=== PATIENT | female | born 1955 | race Caucasian/White ===

== ENCOUNTER 2020-02-16 10:42 | Outpatient (CLI) | payer BC, SELFPAY ==
--- NOTE | ~2020-02-16 | MM_ITS ---
EXAMINATION: MM screening [facility] BI w princess HISTORY: Screening mammogram TECHNIQUE: Craniocaudal and mediolateral oblique 3-D tomosynthesis images were obtained and synthetic 2-D images were generated. CAD analysis was submitted and interpreted. COMPARISON: Comparison to multiple prior studies sequentially, with oldest reviewed study dated 07/2018. BREAST PARENCHYMAL COMPOSITION: The breasts are heterogeneously dense, which may obscure small masses . FINDINGS: There is no evidence of suspicious mass, calcification, or architectural distortion to sugg est malignancy in either breast. There has been no suspicious interval change. IMPRESSION: 1. No mammographic evidence of malignancy. 2. Recommend routine screening mammography in one year. BI-RADS Category 1: Negative Reviewed, dictated and finalized at location A.
== END 2020-02-16 10:43 | disposition home or self-care (01) ==
LOC: ANHIMG 10:47
PROVIDERS: Visit Provider Internal Medicine Hematology & Oncology
DX: Z12.31 Encounter for screening mammogram for malignant neoplasm of breast (principal)
CPT/HCPCS: 77063; 77067

== ENCOUNTER 2020-06-06 11:29 | Outpatient (CLI) | payer BC, SELFPAY ==
[2020-06-06 11:51] LABS: Basophils Absolute Auto 0.1 K/mm3 (0.0-0.1); Basophils Percent Auto 1.3 % (0.2-1.2); Eosinophils Absolute Auto 0.2 K/mm3 (0-0.3); Eosinophils Percent Auto 2.7 % (0-4.4); Hematocrit 38.5 % (37.0-47.0); Hemoglobin 12.7 g/dL (12.0-15.0); Immature Granulocyte Absolute 0.02 K/mm3 (0.00-0.031); Immature Granulocyte Percent A 0.3 % (0-0.5); Lymphocytes Absolute Auto 2.13 K/mm3 (0.9-3.2); Lymphocytes Percent Auto 30.3 % (18.3-44.2); Mean Corpuscular Hemoglobin 32.2 pg (26-34); Mean Corpuscular Volume 97.7 fl (80-100); Monocytes Absolute Auto 0.9 K/mm3 (0.1-0.6); Neutrophils Absolute Auto 3.7 K/mm3 (1.3-6.7); Neutrophils Percent Auto 52.4 % (45.5-73.1); Platelet Count Result 247 k/mm3 (150-375); Red Blood Count 3.94 M/mm3 (4.2-5.4); Red Cell Distribution Width 12.7 % (11.5-14.5)
[2020-06-06 14:56] LABS: Alanine Aminotransferase 22 U/L (4-35); Albumin Level 4.3 g/dL (3.5-5.1); Alkaline Phosphatase 68 U/L (38-126); Aspartate Amino Transferase 24 U/L (14-36); Bilirubin,Total 0.2 mg/dL (0.2-1.3); Blood Urea Nitrogen 13 mg/dL (7-17); Calcium 9.3 mg/dL (8.4-10.2); Carbon Dioxide 28 mmol/L (22-30); Chloride 100 mmol/L (98-107); Estimated Glomerular Filt Rate > 60; Glucose 87 mg/dL (65-105); Potassium 4.2 mmol/L (3.4-5.0); Sodium 135 mmol/L (137-145)
[2020-06-08 21:19] LABS: CA 27.29 13 U/mL (<38)
== END 2020-06-06 11:30 | disposition home or self-care (01) ==
PROVIDERS: Visit Provider Internal Medicine Hematology & Oncology
DX: C50.212 Malignant neoplasm of upper-inner quadrant of left female breast (principal); Z17.0 Estrogen receptor positive status [ER+]
CPT/HCPCS: 36415; 80053; 85025; 86300

== ENCOUNTER 2020-10-31 12:23 | Outpatient (CLI) | payer BC, SELFPAY ==
[2020-10-31 12:59] LABS: Basophils Absolute Auto 0.1 K/mm3 (0.0-0.1); Basophils Percent Auto 0.9 % (0.2-1.2); Eosinophils Absolute Auto 0.3 K/mm3 (0-0.3); Eosinophils Percent Auto 4.3 % (0-4.4); Hematocrit 39.8 % (37.0-47.0); Hemoglobin 13.3 g/dL (12.0-15.0); Immature Granulocyte Absolute 0.01 K/mm3 (0.00-0.031); Immature Granulocyte Percent A 0.1 % (0-0.5); Lymphocytes Absolute Auto 2.13 K/mm3 (0.9-3.2); Lymphocytes Percent Auto 28.8 % (18.3-44.2); Mean Corpuscular HGB Conc 33.4 g/dl (32-36); Mean Corpuscular Hemoglobin 32.4 pg (26-34); Mean Corpuscular Volume 96.8 fl (80-100); Mean Platelet Volume 9.2 fl (7.4-10.4); Monocytes Percent Auto 14.1 % (2.6-8.5); Neutrophils Absolute Auto 3.8 K/mm3 (1.3-6.7); Neutrophils Percent Auto 51.8 % (45.5-73.1); Platelet Count Result 267 k/mm3 (150-375); Red Blood Count 4.11 M/mm3 (4.2-5.4); Red Cell Distribution Width 12.9 % (11.5-14.5); White Blood Count 7.4 K/mm3 (4.5-10.0)
[2020-10-31 17:34] LABS: Alanine Aminotransferase 24 U/L (4-35); Alkaline Phosphatase 68 U/L (38-126); Anion Gap 6 mmol/L (8-16); Aspartate Amino Transferase 28 U/L (14-36); Bilirubin,Total 0.1 mg/dL (0.2-1.3); Blood Urea Nitrogen 18 mg/dL (7-17); Calcium 9.3 mg/dL (8.4-10.2); Carbon Dioxide 31 mmol/L (22-30); Chloride 103 mmol/L (98-107); Estimated Glomerular Filt Rate > 60; Glucose 83 mg/dL (65-105); Potassium 4.3 mmol/L (3.4-5.0); Sodium 140 mmol/L (137-145)
[2020-11-02 12:31] LABS: CA 27.29 13 U/mL (<38)
== END 2020-10-31 12:24 | disposition home or self-care (01) ==
PROVIDERS: Visit Provider Internal Medicine Hematology & Oncology
DX: C50.212 Malignant neoplasm of upper-inner quadrant of left female breast (principal); Z17.0 Estrogen receptor positive status [ER+]
CPT/HCPCS: 36415; 80053; 85025; 86300

== ENCOUNTER → 2021-01-31 00:44 | Outpatient (CLI) | payer BC, SELFPAY ==
[2021-01-31 19:08] LABS: SARS-CoV-2 RNA PCR Negative
== END ==
PROVIDERS: Visit Provider Obstetrics & Gynecology
DX: Z01.812 Encounter for preprocedural laboratory examination (principal); Z20.822 Contact with and (suspected) exposure to COVID-19
CPT/HCPCS: C9803; U0003; U0005

== ENCOUNTER 2021-01-31 12:57 | Outpatient (CLI) | payer BC, SELFPAY ==
--- NOTE | 2021-01-31 13:00 | ECG_ITS ---
Measurements Intervals [place] Rate: 75 P: 62 ME: 179 QRS: -15 QRSD: 106 T: 20 QT: 408 QTc: 456 Interpretive Statements SINUS RHYTHM POSSIBLE LEFT ATRIAL ENLARGEMENT INCOMPLETE RIGHT BUNDLE BRANCH BLOCK DELAYED PRECORDIAL R/S TRANSITION BORDERLINE ST-T WAVE ABNORMALITY- INFERIOR LEADS BASELINE ARTIFACT- I, II, III, AVR, AVL, AVF, V1-V6 BORDERLINE ECG Electronically Signed On 01-31-2021 13:28:14 [employer] by Aron Rey D.O.
== END 2021-01-31 12:58 | disposition home or self-care (01) ==
LOC: ANHSURGERY 13:02
PROVIDERS: PCP Family Medicine; Visit Provider Obstetrics & Gynecology
DX: I10 Essential (primary) hypertension (principal); Z01.812 Encounter for preprocedural laboratory examination; R94.31 Abnormal electrocardiogram [ECG] [EKG]; I45.10 Unspecified right bundle-branch block
CPT/HCPCS: 93005

== ENCOUNTER 2021-02-03 00:13 | Day surgery (SDC) | payer BC, SELFPAY ==
[2021-01-30 14:12] VITALS: BMI 24.7
--- NOTE | 2021-02-02 13:50 | WPDANESEPPF ---
Anes - Initial Pre Proc Eval Procedure: Operation Date: 02/03/21 13:00 Proposed Procedures p Anterior and Posterior Repair - Honorio Chowdhury MD s Trans Obturator Taping - Honorio Chowdhury MD Date/Time: 02/02/21 13:50 Surgeon: Honorio Chowdhury MD Pre Op Diagnosis: Uterine Prolapse, Incontinence Patient Data Age: 65 Gender: F Height: 1.68 m Weight: 69.54 kg Allergies Allergy/AdvReac Type Severity Reaction Status Date / Time Penicillins Allergy Intermediate Numbness Verified 02/03/21 11:26 Home Medications Medication Instructions Recorded Confirmed Type amlodipine 5 mg PO DAILY 01/30/21 02/03/21 History aspirin [Aspir-81] 81 mg PO DAILY 01/30/21 02/03/21 History azelastine 1 spray INTRANASAL PRN 01/30/21 02/03/21 History cholecalciferol (vitamin D3) 25 mcg PO DAILY 01/30/21 02/03/21 History [Vitamin D3] multivitamin [Multi-Daily] 1 tablet PO DAILY 01/30/21 02/03/21 History venlafaxine 37.5 mg PO DAILY 01/30/21 02/03/21 History Patient hx anesthesia problems: none Family hx anesthesia problems: none PMFSH Past Medical History Medical History Breast cancer FHx: mastectomy Hypertension Osteoarthritis Surgical History Surgical History H/O: hysterectomy History of bunionectomy Family History Family History Grandparent Diabetes mellitus Sibling Diabetes mellitus Family history of malignant neoplasm Family history of throat cancer Mother Diabetes mellitus Hypertension Family history of malignant melanoma Family history of coronary artery disease Other Family history of Alzheimer's disease Family history of cardiovascular disease Social History Social History Smoking status: Light tobacco smoker Tobacco type: cigarettes Additional smoking assessment comments: 1/2 ppd x 20 years Alcohol intake: current Alcohol use details: wine every 4 months Living arrangements: with family Spiritual care concerns: No Anes - Eval Final PreProcedure Day of Procedure 02/02/21 13:50 Patient weight: normal Heart: regular rate and rhythm Lungs: clear to auscultation and normal air movement Airway: Mallampati scale class II Neurological: alert and oriented Last oral intake: >/= 8 hours ASA classification: III Emergent: no Anesthetic plan: proceed Anesthesia type and monitoring: general LMA Informed Consent: The patient's anesthetic plan and its attendant risks and benefits were discussed with the patient/family/POA. Questions were solicited and answers provided to the satisfaction of the patient/family/POA.
[2021-02-03] VITALS (7 sets, daily range): BP systolic 108–140; BP diastolic 68–94; PULSE 67–79; RESP 12–20; TEMP 36.4–37.1; O2SAT 93–100
[2021-02-03] MEDS: ACETAMINOPHEN 500 MG TABLET 1000 MG PO (11:46)
[2021-02-03] MEDS: LACTATED RINGERS 1,000 ML 30 ML IV CONT ×2 (11:54→15:10)
--- NOTE | 2021-02-03 11:54 | PM.IMHP ---
H&P: HPI History of Present Illness Date/Time: 02/03/21 11:54 Chief Complaint: vaginal pressure and increase bladder infections. Narrative: Dai Montano is a 65 year old female s/p WOLF several years ago presented to the office with complaints of urine leakage and vaginal pressure worsening over the last few years. Patient also reports increasing bladder infections. Patient states she has tried pelvic exercises and kegels and declines the use of pessary devices. Patient denies a strong history of constipation. Review of Systems Musculoskeletal: Musculoskeletal: Reports arthralgias PMFSH Past Medical History Medical History Breast cancer FHx: mastectomy Hypertension Osteoarthritis Surgical History Surgical History H/O: hysterectomy History of bunionectomy Family History Family History Grandparent Diabetes mellitus Sibling Diabetes mellitus Family history of malignant neoplasm Family history of throat cancer Mother Diabetes mellitus Hypertension Family history of malignant melanoma Family history of coronary artery disease Other Family history of Alzheimer's disease Family history of cardiovascular disease Social History Social History Smoking status: Light tobacco smoker Tobacco type: cigarettes Additional smoking assessment comments: 1/2 ppd x 20 years Alcohol intake: current Alcohol use details: wine every 4 months Living arrangements: with family Spiritual care concerns: No Meds Home Medications and Allergies Home Medications Medication Instructions Recorded Confirmed Type amlodipine 5 mg PO DAILY 01/30/21 02/03/21 History aspirin [Aspir-81] 81 mg PO DAILY 01/30/21 02/03/21 History azelastine 1 spray INTRANASAL PRN 01/30/21 02/03/21 History cholecalciferol (vitamin D3) 25 mcg PO DAILY 01/30/21 02/03/21 History [Vitamin D3] multivitamin [Multi-Daily] 1 tablet PO DAILY 01/30/21 02/03/21 History venlafaxine 37.5 mg PO DAILY 01/30/21 02/03/21 History Allergies Allergy/AdvReac Type Severity Reaction Status Date / Time Penicillins Allergy Intermediate Numbness Verified 02/03/21 11:26 Exam Const: General: healthy appearing Resp: Effort & Inspection: normal respiratory effort Auscultation: clear to auscultation bilaterally GI: Inspection: normal to inspection : Bimanual Exam- Adnexa, other: rectocele and cystocele Assessment and Plan Assessment and plan (1) Reduced bladder sensation due to prolapse of pelvic organ: Code(s): R39.89 - Other symptoms and signs involving the genitourinary system Status: Acute Assessment and Plan: Patient scheduled for a Anterior and Posterior Repair with TOT c cystoscopy. Risk of bleeding, infection, trauma, mesh erosion, bladder retention,and pelvic pain. Patient agrees to proceed with surgery. (2) Pelvic organ prolapse quantification stage 2 cystocele: Code(s): N81.10 - Cystocele, unspecified Status: Acute (3) Pelvic organ prolapse quantification stage 3 rectocele: Code(s): N81.6 - Rectocele Status: Acute
[2021-02-03] MEDS: KETOROLAC 15 MG/ML VIAL (*BKC) IV PUSH (11:56)
--- NOTE | 2021-02-03 13:01 | WPDHPUPDATE1 ---
History and Physical Update Update Date/Time: 02/03/21 13:01 History and Physical has been reviewed, including an updated exam of the patient. There are NO changes in the patient's condition. Risks, benefits, and alternatives have been discussed and questions answered. Patient agrees to proceed with procedure.
[2021-02-03] MEDS: CLINDAMYCIN 900 MG/D5W 50 ML 900 MG/50 ML PIGGYBACK 50 MG IVPB (13:30)
[2021-02-03] MEDS: LIDO 1%/EPINEPHRINE 1:100,000 50 ML VIAL INFILTRATE (13:38)
--- NOTE | 2021-02-03 15:13 | PM.PROC ---
Procedure Note - Detailed Date of procedure: 02/04/21 Pre-op diagnosis: cystocele,rectocele, Incontinence Post-op diagnosis: same Procedure performed: Anterior and posterior repair with Transobturator taping and cystoscopy Description of procedure: Patient was taken to the operating room and placed in a dorsal lithotomy position. The patient was prepared and draped in a normal sterile fashion. Volar plaster Joseph catheter was placed into the bladder and the bladder was drained for 100cc. A solution of 1% lidocaine with epinephrine was in the trade on the anterior vaginal mucosa midline a small incision was made and the vaginal mucosa at the vaginal vault. Then the Metzenbaum scissors were then used to the rectum because of the thick cystocele and cut the vaginal mucosa in the midline the cut edges were held and splayed laterally with a series of Allis clamps. The bladder was dissected away along the lateral edges with the combination of short and blunt dissection exposing the vesicle vaginal space a series of 2 Ethibond suture interrupted were then placed sequentially along the lateral poles of the vesicle vaginal space and brought together to tuck the bladder back while simultaneously bringing the lateral vaginal tissue is to get a the excess vaginal mucosa was then trimmed and the vaginal Gyne was then closed with a running lock of 2 0 Vicryl suture. Attention was then turned to the posterior wall of the vagina and a lidocaine epinephrine solution was infiltrated in the posterior vaginal mucosa midline and to the perineal body of the old scars was cut out. the perineum and the posterior vaginal wall was opened vertically in midline up to the apex of the rectocele the cut edges were held and splayed laterally with Allis clamps original vaginal mucosa was then dissected laterally with caution combination of sharp and blunt dissection exposing the perirectal fascia and the perirectal fascia was then reapproximated with insert did all oxide 3 0 0 Ethibond sutures and lateral phos together intact the rectocele back deep interrupted sutures were used to reapproximate the fibers of the levator anion muscles in the excess vaginal mucosa was trimmed the posterior vaginal wall was closed with 0 Vicryl 2 0 Vicryl suture to the hymenal tags and the superficial perineal muscles were then closed with a running lock suture of 2 Vicryl in the perineal skin was closed with running subcuticular 2 0 Vicryl suture attention was then turned to the bladder sling and which 2 Allis clamps were placed along the anterior vaginal wall beginning 1cm below the urethra and 3cm apart vertically a 2cm incision was made between Allis clamps on anterior vaginal mucosa in the periurethral tissue was dissected with the Metzenbaum scissors and blunt dissection to the level of the pubic bone on either side the midline. The obturator foramen on the right portions of the vagina well palpated bilaterally and injected with 1% lidocaine with epinephrine. And marked with a sterile marker. Stab incision was made in both areas. The obturator device hook was then introduced through the outer obturator foramen through the membrane entering alongside the bladder and urethra pushing the bladder and urethra out of the way and exiting through the vagina. The same procedure occurred on the left side. Cystoscope was performed with the 70 degree scope and the bladder dome was noted the posterior portion of the bladder with no visual suture noted. the obturator devices were manipulated and no areas of punctation were noted in the bladder beatty bilaterally. And there were bilateral ureteral jets noted with an intact urethra. The cystoscope was removed. The vaginal taping was attached to the obturator removed and pulled through under proper tension with spacing with Becker scissors. The mail the vaginal mucosa was then closed with 2 0 Vicryl suture in a running locked fashion. The stab wound incisions were covered with surgical
[2021-02-03] MEDS: fentaNYL CITRATE INJ (*CRX) 100 MCG/2 ML VIAL 25 MCG IV PUSH ×2 (15:28→15:45)
--- NOTE | 2021-02-03 16:20 | PC.NURSE ---
This patient, Dai Montano, was received from PACU per kym on 02/03/21 at 1620. Patient/family oriented to unit policies and routines
[2021-02-03] MEDS: IBUPROFEN 600 MG TABLET PO (17:40)
[2021-02-03] MEDS: HYDROcodone/acetaminophen (*CRX) 5-325 MG TABLET 1 TAB PO (17:41)
[2021-02-03] MEDS: HYDROcodone/acetaminophen (*CRX) 10-325 MG TABLET 1 TAB PO (21:30)
[2021-02-04] MEDS: IBUPROFEN 600 MG TABLET PO (03:43)
[2021-02-04] MEDS: HYDROcodone/acetaminophen (*CRX) 10-325 MG TABLET 1 TAB PO ×2 (03:43→08:03)
[2021-02-04 03:44] VITALS: BP 130/80; PULSE 69; RESP 16; TEMP 36.4; O2SAT 98
[2021-02-04] MEDS: amLODIPine BESYLATE 5 MG TABLET PO (08:03)
[2021-02-04] MEDS: DOCUSATE SODIUM 100 MG CAPSULE 200 MG PO (08:07)
[2021-02-04 08:55] VITALS: BP 134/82; PULSE 72; RESP 18; TEMP 37.3; O2SAT 98
--- NOTE | 2021-02-04 09:02 | WPDANESPN ---
Anes - Prog Note Post-Op Date/Time: 02/04/21 09:02 Cardiovascular status: normal Respiratory status: normal Airway patency: baseline Mental status: baseline Post-Op hydration status: normal Vital Signs: Last Vital Signs Temp 36.4 C L 02/04/21 03:44 Pulse 69 02/04/21 03:44 Resp 16 02/04/21 03:44 BP 130/80 02/04/21 03:44 Pulse Ox 98 02/04/21 03:44 Pain Score (VAS): 12/11 I/O: Intake & Output 02/03/21 02/04/21 02/04/21 23:59 07:59 15:59 Intake Total 100 Output Total 300 Balance -200 Post-procedural complaints: none Patient Feedback: Patient satisfied with anesthetic care.
--- NOTE | 2021-02-04 09:07 | PM.OBPNVD ---
OB - PN: Subj Subjective Date/time seen: 02/04/21 09:07 Patient reports some right sided groin pain with walking otherwise okay. OB - PN A/P Assessment and Plan (1) Pelvic organ prolapse quantification stage 3 rectocele: Code(s): N81.6 - Rectocele Status: Acute Assessment and Plan: continue with postop care will d/c home when pain relieved with prn meds ambulate and tolerating diet. (2) Pelvic organ prolapse quantification stage 2 cystocele: Code(s): N81.10 - Cystocele, unspecified Status: Acute (3) Reduced bladder sensation due to prolapse of pelvic organ: Code(s): R39.89 - Other symptoms and signs involving the genitourinary system Status: Acute Time Spent With Patient Time: Total time spent is greater than 50% in coordination of care (as documented) at patient's floor/unit and/or counseling patient: Exam Narrative: Exam Narrative: urinary catheter and packing removed. No visible or palplabe hematoma noted. minimal bleeding on packing
[2021-02-04] MEDS: KETOROLAC 30 MG/ML VIAL (*BKC) IV PUSH (11:07)
[2021-02-04] MEDS: CYCLOBENZAPRINE HCL 10 MG TABLET PO (12:09)
== END 2021-02-04 12:37 | disposition home or self-care (01) ==
LOC: ANHSURGERY 15:20 → ANHOB2 16:07
PROVIDERS: PCP Family Medicine; Visit Provider Obstetrics & Gynecology
PROC: (CPT 57260; principal; 2021-02-03 13:00)
PROC: (CPT 57260; 2021-02-03 13:00)
DX: N81.10 Cystocele, unspecified (principal); N81.6 Rectocele; R39.89 Other symptoms and signs involving the genitourinary system; R32 Unspecified urinary incontinence; I10 Essential (primary) hypertension; M19.90 Unspecified osteoarthritis, unspecified site; Z85.3 Personal history of malignant neoplasm of breast; F17.210 Nicotine dependence, cigarettes, uncomplicated; Z79.82 Long term (current) use of aspirin
CPT/HCPCS: 57260; 57288; 99199; A9270; C1771; J1100; J1580; J1885; J2250; J2370; J2405; J2704; J3010; J7030; J7120

== ENCOUNTER 2021-04-28 14:58 | Outpatient (CLI) | payer BC, SELFPAY ==
--- NOTE | ~2021-04-28 | MM_ITS ---
EXAMINATION: MM screening [facility] BI w princess HISTORY: Screening mammogram TECHNIQUE: Craniocaudal and mediolateral oblique 3-D tomosynthesis images were obtained and synthetic 2-D images were generated. CAD analysis was submitted and interpreted. COMPARISON: 02/16/2020, 02/12/2019 bilateral digital screening mammogram examinations 07/22/2018 diagnostic left mammogram and complete left breast ultrasound Numerous bilateral digital screening mammogram BREAST PARENCHYMAL COMPOSITION: The breasts are heterogeneously dense, which may obscure small masses . FINDINGS: History of the left partial mastectomy for breast cancer in 2017. There is interval increased asymmetric density and architectural distortion in the upper outer quadra nt of the left breast. Differential diagnosis includes postoperative scarring versus recurrent malign pretty. Diagnostic left mammogram and left breast ultrasound examination are recommended. There is no evidence of suspicious mass, calcification, or architectural distortion to suggest malign pretty on the right breast. There has been no suspicious interval change on the right. IMPRESSION: 1. Increased asymmetric density and architectural distortion in upper outer left breast; differential diagnosis includes postoperative scarring versus recurrent malignancy. 2. Diagnostic left mammogram and left breast ultrasound examination are recommended. BI-RADS Category 0: Incomplete: Needs additional imaging evaluation. Reviewed, dictated and finalized at location A. IMPRESSION: 1. Increased asymmetric density and architectural distortion in upper outer lef t breast; differential diagnosis includes postoperative scarring versus recurre nt malignancy. 2. Diagnostic left mammogram and left breast ultrasound examination are recomme nded. BI-RADS Category 0: Incomplete: Needs additional imaging evaluation.
== END 2021-04-28 14:59 | disposition home or self-care (01) ==
LOC: ANHIMG 15:01
PROVIDERS: PCP Family Medicine; Visit Provider Internal Medicine Hematology & Oncology
DX: Z12.31 Encounter for screening mammogram for malignant neoplasm of breast (principal); R92.8 Other abnormal and inconclusive findings on diagnostic imaging of breast
CPT/HCPCS: 77063; 77067

== ENCOUNTER 2021-05-04 15:08 | Outpatient (CLI) | payer BC, SELFPAY ==
[2021-05-04 15:25] LABS: Basophils Absolute Auto 0.1 K/mm3 (0.0-0.1); Basophils Percent Auto 0.8 % (0.2-1.2); Eosinophils Absolute Auto 0.2 K/mm3 (0-0.3); Eosinophils Percent Auto 2.3 % (0-4.4); Hematocrit 38.9 % (37.0-47.0); Hemoglobin 13.3 g/dL (12.0-15.0); Immature Granulocyte Absolute 0.01 K/mm3 (0.00-0.031); Immature Granulocyte Percent A 0.1 % (0-0.5); Lymphocytes Absolute Auto 2.84 K/mm3 (0.9-3.2); Lymphocytes Percent Auto 35.9 % (18.3-44.2); Mean Corpuscular HGB Conc 34.2 g/dl (32-36); Mean Corpuscular Hemoglobin 32.1 pg (26-34); Mean Platelet Volume 9.2 fl (7.4-10.4); Neutrophils Absolute Auto 3.9 K/mm3 (1.3-6.7); Neutrophils Percent Auto 48.9 % (45.5-73.1); Platelet Count Result 264 k/mm3 (150-375); Red Blood Count 4.14 M/mm3 (4.2-5.4); Red Cell Distribution Width 12.9 % (11.5-14.5); White Blood Count 7.9 K/mm3 (4.5-10.0)
[2021-05-04 17:22] LABS: Alanine Aminotransferase 21 U/L (4-35); Albumin Level 4.3 g/dL (3.5-5.1); Alkaline Phosphatase 70 U/L (38-126); Anion Gap 9 mmol/L (8-16); Aspartate Amino Transferase 24 U/L (14-36); Bilirubin,Total 0.2 mg/dL (0.2-1.3); Blood Urea Nitrogen 12 mg/dL (7-17); Calcium 9.2 mg/dL (8.4-10.2); Carbon Dioxide 26 mmol/L (22-30); Chloride 102 mmol/L (98-107); Estimated Glomerular Filt Rate > 60; Glucose 93 mg/dL (65-105); Potassium 3.8 mmol/L (3.4-5.0); Sodium 137 mmol/L (137-145)
[2021-05-07 08:46] LABS: CA 15-3 5 U/mL (<32)
== END 2021-05-04 15:09 | disposition home or self-care (01) ==
LOC: ANHLAB 15:14
PROVIDERS: PCP Family Medicine; Visit Provider Internal Medicine Hematology & Oncology
DX: Z85.3 Personal history of malignant neoplasm of breast (principal)
CPT/HCPCS: 36415; 80053; 85025; 86300

== ENCOUNTER 2021-05-29 12:57 | Outpatient (CLI) | payer BC, SELFPAY ==
--- NOTE | ~2021-05-29 | MMUS_ITS ---
EXAMINATION: MM diagnostic mammo unilat LT, US breast LT limited HISTORY: Left breast asymmetry on screening mammogram, history of left breast cancer TECHNIQUE: Additional 3-D tomosynthesis images of the left breast were performed and synthetic 2-D im ages were generated. CAD analysis was submitted and interpreted. High resolution limited left breast ultrasound was performed. COMPARISON: 04/28/2021, 02/16/2020, 02/12/2019, 07/22/2018 BREAST PARENCHYMAL COMPOSITION: The breasts are heterogeneously dense, which may obscure small masses . FINDINGS: MAMMOGRAPHIC FINDINGS: There is a return to baseline fibroglandular appearance with spot compression of the left breast in t he area questioned on screening mammogram. ULTRASOUND: There is no evidence of suspicious solid or cystic mass in the vicinity of the mammographic finding i n question. There is a 7 mm x 3 mm cyst at the 3:00 location 2 cm from the nipple. IMPRESSION: 1. No mammographic or sonographic evidence of malignancy. 2. Recommend routine screening mammography in one year. BI-RADS Category 2: Benign finding(s). Reviewed, dictated and finalized at location B. IMPRESSION: 1. No mammographic or sonographic evidence of malignancy. 2. Recommend routine screening mammography in one year. BI-RADS Category 2: Benign finding(s).
== END 2021-05-29 12:58 | disposition home or self-care (01) ==
PROVIDERS: PCP Family Medicine; Visit Provider Internal Medicine Hematology & Oncology
DX: R92.8 Other abnormal and inconclusive findings on diagnostic imaging of breast (principal)
CPT/HCPCS: 76642; 77065

== ENCOUNTER 2021-10-31 12:45 | Outpatient (CLI) | payer BC, SELFPAY ==
[2021-10-31 13:07] LABS: Basophils Absolute Auto 0.1 K/mm3 (0.0-0.1); Basophils Percent Auto 1.1 % (0.2-1.2); Eosinophils Absolute Auto 0.2 K/mm3 (0-0.3); Eosinophils Percent Auto 2.5 % (0-4.4); Hematocrit 40.7 % (37.0-47.0); Immature Granulocyte Absolute 0.01 K/mm3 (0.00-0.031); Immature Granulocyte Percent A 0.1 % (0-0.5); Lymphocytes Absolute Auto 2.16 K/mm3 (0.9-3.2); Lymphocytes Percent Auto 25.8 % (18.3-44.2); Mean Corpuscular HGB Conc 34.4 g/dl (32-36); Mean Corpuscular Hemoglobin 32.2 pg (26-34); Mean Corpuscular Volume 93.6 fl (80-100); Mean Platelet Volume 9.1 fl (7.4-10.4); Monocytes Percent Auto 11.9 % (2.6-8.5); Neutrophils Absolute Auto 4.9 K/mm3 (1.3-6.7); Neutrophils Percent Auto 58.6 % (45.5-73.1); Platelet Count Result 296 k/mm3 (150-375); Red Blood Count 4.35 M/mm3 (4.2-5.4); Red Cell Distribution Width 12.7 % (11.5-14.5); White Blood Count 8.4 K/mm3 (4.5-10.0)
[2021-10-31 16:31] LABS: Alanine Aminotransferase 23 U/L (4-35); Albumin Level 4.6 g/dL (3.5-5.1); Alkaline Phosphatase 82 U/L (38-126); Anion Gap 8 mmol/L (8-16); Aspartate Amino Transferase 23 U/L (14-36); Bilirubin,Total 0.4 mg/dL (0.2-1.3); Blood Urea Nitrogen 16 mg/dL (7-17); Calcium 9.3 mg/dL (8.4-10.2); Carbon Dioxide 27 mmol/L (22-30); Chloride 96 mmol/L (98-107); Estimated Glomerular Filt Rate > 60; Glucose 147 mg/dL (65-110); Sodium 131 mmol/L (137-145)
[2021-11-03 05:28] LABS: CA 15-3 6 U/mL (<32)
== END 2021-10-31 12:46 | disposition home or self-care (01) ==
LOC: ANHLAB 12:47
PROVIDERS: PCP Family Medicine; Visit Provider Internal Medicine Hematology & Oncology
DX: Z85.3 Personal history of malignant neoplasm of breast (principal)
CPT/HCPCS: 36415; 80053; 85025; 86300

== ENCOUNTER 2022-02-07 00:10 | Day surgery (SDC) | payer BC, SELFPAY ==
[2022-01-26 12:38] VITALS: BMI 24.2
--- NOTE | 2022-02-06 22:01 | WPDGICN ---
Assessment and Plan Assessment and plan (1) Colon cancer screening: Code(s): Z12.11 - Encounter for screening for malignant neoplasm of colon Status: Acute Assessment and Plan: Colonoscopy with possible biopsy or polypectomy or cautery or injection of substances. GI Consult Note Consult date/time: 02/06/22 22:01 HPI: Dai Montano is a 66 year old female referred for coloncancer screening. Risk factors include a personal hx of breast cancer . Review of Systems Review of Systems: All systems reviewed & are unremarkable except as noted in HPI and below PMFSH Past Medical History Medical History Breast cancer FHx: mastectomy Hypertension Osteoarthritis Pelvic organ prolapse quantification stage 2 cystocele Pelvic organ prolapse quantification stage 3 rectocele Reduced bladder sensation due to prolapse of pelvic organ Surgical History Surgical History H/O: hysterectomy History of bunionectomy Family History Family History Grandparent Diabetes mellitus Sibling Diabetes mellitus Family history of malignant neoplasm Family history of throat cancer Mother Diabetes mellitus Hypertension Family history of malignant melanoma Family history of coronary artery disease Other Family history of Alzheimer's disease Family history of cardiovascular disease Social History Social History Smoking status: Former smoker Tobacco type: cigarettes Additional smoking assessment comments: 1/2 ppd x 20 years Alcohol intake: current Alcohol use details: 1 drink monthly Substance use: never Living arrangements: with family Gender identity (if verbalized by the patient): Female Spiritual care concerns: No Meds Home Medications and Allergies Home Medications Medication Instructions Recorded Confirmed Type amlodipine 5 mg PO DAILY 01/30/21 02/07/22 History aspirin 81 mg PO DAILY 01/30/21 02/07/22 History azelastine 1 spray INTRANASAL PRN PRN 01/30/21 02/07/22 History cholecalciferol (vitamin D3) 25 mcg PO DAILY 01/30/21 02/07/22 History [Vitamin D3] multivitamin 1 tablet PO DAILY 01/30/21 02/07/22 History venlafaxine 37.5 mg PO DAILY 01/30/21 02/07/22 History fluticasone propionate [Flonase 1 spray INTRANASAL DAILY 01/26/22 02/07/22 History Allergy Relief] levocetirizine [Xyzal] 5 mg PO DAILY 01/26/22 02/07/22 History valsartan 80 mg PO BID 01/26/22 02/07/22 History Allergies Allergy/AdvReac Type Severity Reaction Status Date / Time Penicillins Allergy Intermediate Numbness Verified 02/07/22 09:38 aspirin Allergy Numbness Verified 02/07/22 09:38 [From [facility] Sinus] phenylpropanolamine Allergy Numbness Verified 02/07/22 09:38 [From [facility] Sinus] Exam Const: General: alert Orientation/consciousness: patient oriented x3 Resp: Auscultation: clear to auscultation bilaterally Cardio: Rhythm: regular rhythm GI: GI Palp: Yes Soft to palpation and No Tenderness to palpation present (GI) Neuro: General: patient oriented x3
--- NOTE | 2022-02-07 09:06 | WPDANESEPPF ---
Anes - Initial Pre Proc Eval Procedure: Operation Date: 02/07/22 11:00 Proposed Procedures p Screening Colonoscopy - Jovany Miguel MD Date/Time: 02/07/22 09:06 Surgeon: Jovany Miguel MD Pre Op Diagnosis: neoplasm screening Patient Data Age: 66 Gender: F Height: 1.68 m Weight: 68 kg Allergies Allergy/AdvReac Type Severity Reaction Status Date / Time Penicillins Allergy Intermediate Numbness Verified 02/07/22 09:38 aspirin Allergy Numbness Verified 02/07/22 09:38 [From [facility]us] phenylpropanolamine Allergy Numbness Verified 02/07/22 09:38 [From [facility]us] Home Medications Medication Instructions Recorded Confirmed Type amlodipine 5 mg PO DAILY 01/30/21 02/07/22 History aspirin 81 mg PO DAILY 01/30/21 02/07/22 History azelastine 1 spray INTRANASAL PRN PRN 01/30/21 02/07/22 History cholecalciferol (vitamin D3) 25 mcg PO DAILY 01/30/21 02/07/22 History [Vitamin D3] multivitamin 1 tablet PO DAILY 01/30/21 02/07/22 History venlafaxine 37.5 mg PO DAILY 01/30/21 02/07/22 History fluticasone propionate [Flonase 1 spray INTRANASAL DAILY 01/26/22 02/07/22 History Allergy Relief] levocetirizine [Xyzal] 5 mg PO DAILY 01/26/22 02/07/22 History valsartan 80 mg PO BID 01/26/22 02/07/22 History Patient hx anesthesia problems: none Family hx anesthesia problems: none Results Review: All pre-operative results and documents have been reviewed as part of the pre-operative evaluation. [facility] Past Medical History Medical History Breast cancer FHx: mastectomy Hypertension Osteoarthritis Pelvic organ prolapse quantification stage 2 cystocele Pelvic organ prolapse quantification stage 3 rectocele Reduced bladder sensation due to prolapse of pelvic organ Surgical History Surgical History H/O: hysterectomy History of bunionectomy Family History Family History Grandparent Diabetes mellitus Sibling Diabetes mellitus Family history of malignant neoplasm Family history of throat cancer Mother Diabetes mellitus Hypertension Family history of malignant melanoma Family history of coronary artery disease Other Family history of Alzheimer's disease Family history of cardiovascular disease Social History Social History (Updated 10/12/21 @ 10:55 by Rosemarie Arreaga MA) Smoking status: Former smoker Tobacco type: cigarettes Additional smoking assessment comments: 1/2 ppd x 20 years Alcohol intake: current Alcohol use details: 1 drink monthly Substance use: never Living arrangements: with family Gender identity (if verbalized by the patient): Female Spiritual care concerns: No Anes - Eval Final PreProcedure Day of Procedure 02/07/22 09:06 Patient weight: normal Heart: regular rate and rhythm Lungs: clear to auscultation and normal air movement Airway: Mallampati scale class II Neurological: alert and oriented Last oral intake: >/= 8 hours ASA classification: III Emergent: no Anesthetic plan: proceed Anesthesia type and monitoring: general GIVS Results Review: All pre-operative results and documents have been reviewed as part of the pre-operative evaluation. Informed Consent: The patient's anesthetic plan and its attendant risks and benefits were discussed with the patient/family/POA. Questions were solicited and answers provided to the satisfaction of the patient/family/POA.
[2022-02-07 09:41] VITALS: BP 137/92; PULSE 83; RESP 18; TEMP 36.1; O2SAT 95; BMI 24.3
[2022-02-07] MEDS: LACTATED RINGERS 1,000 ML 150 ML IV CONT (09:49)
[2022-02-07 11:08] VITALS: BP 138/91; PULSE 64; RESP 30; O2SAT 99
[2022-02-07 11:18] VITALS: BP 130/82; PULSE 71; RESP 27; O2SAT 100
[2022-02-07 11:28] VITALS: BP 130/81; PULSE 70; RESP 20; O2SAT 100
== END 2022-02-07 11:35 | disposition home or self-care (01) ==
PROVIDERS: PCP Family Medicine; Visit Provider Internal Medicine Gastroenterology
PROC: 0DJD8ZZ Inspection of Lower Intestinal Tract, Via Natural or Artificial Opening Endoscopic (ICD-10-PCS; CPT 45378; principal; 2022-02-07 11:00)
DX: Z12.11 Encounter for screening for malignant neoplasm of colon (principal); K64.4 Residual hemorrhoidal skin tags; K64.8 Other hemorrhoids; K57.30 Diverticulosis of large intestine without perforation or abscess without bleeding; I10 Essential (primary) hypertension; Z87.891 Personal history of nicotine dependence
CPT/HCPCS: 45378; J2704; J7120

== ENCOUNTER 2022-05-31 14:26 | Outpatient (CLI) | payer BC, SELFPAY ==
--- NOTE | ~2022-05-31 | MM_ITS ---
EXAMINATION: MM screening [facility] BI w princess HISTORY: Screening TECHNIQUE: Craniocaudal and mediolateral oblique 3-D tomosynthesis images were obtained and synthetic 2-D images were generated. CAD analysis was submitted and interpreted. COMPARISON: Comparison to multiple prior studies sequentially, with oldest reviewed study dated 07/2018. BREAST PARENCHYMAL COMPOSITION: The breasts are heterogenously dense, which may obscure small masses FINDINGS: There is stable distortion in the upper outer quadrant of the left breast, consistent with previous lumpectomy. There is no evidence of suspicious mass, calcification, or architectural distort ion to suggest malignancy in either breast. There has been no suspicious interval change. IMPRESSION: 1. No mammographic evidence of malignancy. 2. Recommend routine screening mammography in one year. BI-RADS Category 2: Benign finding(s). Reviewed, dictated and finalized at location A.
== END 2022-05-31 14:27 | disposition home or self-care (01) ==
LOC: ANHIMG 14:31
PROVIDERS: PCP Family Medicine; Referring Provider Obstetrics & Gynecology Gynecology; Visit Provider Internal Medicine Hematology & Oncology
DX: Z12.31 Encounter for screening mammogram for malignant neoplasm of breast (principal)
CPT/HCPCS: 77063; 77067

== ENCOUNTER 2022-05-31 14:51 | Outpatient (CLI) | payer BC, SELFPAY ==
[2022-05-31 15:21] LABS: Basophils Absolute Auto 0.1 K/mm3 (0.0-0.1); Eosinophils Absolute Auto 0.2 K/mm3 (0-0.3); Eosinophils Percent Auto 2.8 % (0-4.4); Hemoglobin 13.8 g/dL (12.0-15.0); Immature Granulocyte Absolute 0.02 K/mm3 (0.00-0.031); Immature Granulocyte Percent A 0.3 % (0-0.5); Lymphocytes Absolute Auto 2.45 K/mm3 (0.9-3.2); Lymphocytes Percent Auto 31.5 % (18.3-44.2); Mean Corpuscular HGB Conc 33.7 g/dl (32-36); Mean Corpuscular Hemoglobin 32.5 pg (26-34); Mean Corpuscular Volume 96.5 fl (80-100); Monocytes Absolute Auto 0.9 K/mm3 (0.1-0.6); Monocytes Percent Auto 11.1 % (2.6-8.5); Neutrophils Absolute Auto 4.1 K/mm3 (1.3-6.7); Neutrophils Percent Auto 53.3 % (45.5-73.1); Platelet Count Result 292 k/mm3 (150-375); Red Blood Count 4.25 M/mm3 (4.2-5.4); Red Cell Distribution Width 12.4 % (11.5-14.5); White Blood Count 7.8 K/mm3 (4.5-10.0)
[2022-05-31 17:06] LABS: Alanine Aminotransferase 20 U/L (6-35); Albumin Level 4.6 g/dL (3.5-5.1); Alkaline Phosphatase 78 U/L (38-126); Anion Gap 9 mmol/L (8-16); Aspartate Amino Transferase 23 U/L (14-36); Bilirubin,Total < 0.1 mg/dL (0.2-1.3); Blood Urea Nitrogen 15 mg/dL (7-17); Carbon Dioxide 26 mmol/L (22-30); Chloride 103 mmol/L (98-107); Estimated Glomerular Filt Rate > 60; Glucose 93 mg/dL (65-110); Potassium 3.9 mmol/L (3.4-5.0); Sodium 138 mmol/L (137-145)
[2022-06-03 14:16] LABS: CA 15-3 8 U/mL (<32)
== END 2022-05-31 14:52 | disposition home or self-care (01) ==
PROVIDERS: PCP Family Medicine; Visit Provider Internal Medicine Hematology & Oncology
DX: C50.412 Malignant neoplasm of upper-outer quadrant of left female breast (principal)
CPT/HCPCS: 36415; 80053; 85025; 86300

== ENCOUNTER 2023-03-01 11:08 | Outpatient (CLI) | payer BC, SELFPAY ==
[2023-03-01 11:24] LABS: Basophils Absolute Auto 0.1 K/mm3 (0.0-0.1); Basophils Percent Auto 1.3 % (0.2-1.2); Eosinophils Absolute Auto 0.2 K/mm3 (0-0.3); Eosinophils Percent Auto 2.9 % (0-4.4); Hematocrit 40.5 % (37.0-47.0); Hemoglobin 13.8 g/dL (12.0-15.0); Immature Granulocyte Absolute 0.02 K/mm3 (0.00-0.031); Immature Granulocyte Percent A 0.3 % (0-0.5); Lymphocytes Absolute Auto 1.99 K/mm3 (0.9-3.2); Lymphocytes Percent Auto 27.7 % (18.3-44.2); Mean Corpuscular HGB Conc 34.1 g/dl (32-36); Mean Corpuscular Hemoglobin 32.8 pg (26-34); Mean Corpuscular Volume 96.2 fl (80-100); Mean Platelet Volume 8.9 fl (7.4-10.4); Monocytes Percent Auto 13.2 % (2.6-8.5); Neutrophils Absolute Auto 3.9 K/mm3 (1.3-6.7); Neutrophils Percent Auto 54.6 % (45.5-73.1); Platelet Count Result 300 k/mm3 (150-375); Red Blood Count 4.21 M/mm3 (4.2-5.4); Red Cell Distribution Width 12.8 % (11.5-14.5); White Blood Count 7.2 K/mm3 (4.5-10.0)
[2023-03-01 14:44] LABS: Alanine Aminotransferase 26 U/L (6-35); Albumin Level 4.6 g/dL (3.5-5.1); Alkaline Phosphatase 69 U/L (38-126); Anion Gap 8 mmol/L (8-16); Aspartate Amino Transferase 24 U/L (14-36); Bilirubin,Total 0.5 mg/dL (0.2-1.3); Blood Urea Nitrogen 13 mg/dL (7-17); Calcium 9.1 mg/dL (8.4-10.2); Carbon Dioxide 28 mmol/L (22-30); Chloride 100 mmol/L (98-107); Estimated Glomerular Filt Rate > 60; Glucose 93 mg/dL (65-110); Potassium 3.9 mmol/L (3.4-5.0); Sodium 136 mmol/L (137-145)
[2023-03-05 12:20] LABS: CA 15-3 7 U/mL (<32)
== END 2023-03-01 11:09 | disposition home or self-care (01) ==
LOC: ANHLAB 11:10
PROVIDERS: PCP Family Medicine; Visit Provider Internal Medicine Hematology & Oncology
DX: C50.412 Malignant neoplasm of upper-outer quadrant of left female breast (principal); Z17.0 Estrogen receptor positive status [ER+]
CPT/HCPCS: 36415; 80053; 85025; 86300

== ENCOUNTER 2023-06-10 14:57 | Outpatient (CLI) | payer BC, SELFPAY ==
--- NOTE | ~2023-06-10 | DEXA_ITS ---
Bone Density Report Name: JUDE LAMB I Age: 68 Sex: Female Ethnicity: White Date of : 1955 Indication: postmenopausal; screening for osteoporosis; height loss; cancer; hysterectomy; Referring Provider: MARTITA STEINBERG Study: Bone densitometry was performed. Exam Date: June 10, 2023 Accession number: [id number] Bone Density: Region BMD T-score Z-score Classification AP Spine(L1-L4) 0.861 -1.7 0.1 Osteopenia Femoral Neck (Left) 0.737 -1.0 0.6 Normal Total Hip (Left) 0.886 -0.5 0.8 Normal Femoral Neck (Right) 0.771 -0.7 0.9 Normal Total Hip (Right) 0.880 -0.5 0.8 Normal Total Hip Mean 0.883 -0.5 0.8 Normal World Health Organization criteria for BMD impression classify patients as: Normal (T-score at or above -1.0), Osteopenia (T-score between -1.0 and -2.5), or Osteoporosis (T-score at or below -2.5). 10-year Fracture Risk(1): Major Osteoporotic Fracture 8.3% Hip Fracture 0.6% Reported Risk Factors: [place] (), Neck BMD=0.737, BMI=25.2 (1) FRAX(R) Version 3.08. Fracture probability calculated for an untreated patient. Fracture probability may be lower if the patient has received treatment. Previous Exams: Region Exam Age BMD T-score BMD Change BMD Change Date g/cm2 vs Baseline vs Previous AP Spine (L1-L4) 06/10/2023 68 0.861 -1.7 -0.088 (-9.3%) -0.088 (-9.3%) 04/29/2018 63 0.949 -0.9 Total Hip(Left) 06/10/2023 68 0.886 -0.5 -0.020 (-2.2%) -0.020 (-2.2%) 04/29/2018 63 0.907 -0.3 Total Hip(Right) 06/10/2023 68 0.880 -0.5 -0.060 (-6.4%) -0.060 (-6.4%) 04/29/2018 63 0.940 0.0 *Denotes significance at 95% confidence level, LSC for AP Spine = 0.022 g/cm2, LSC for Total Hip = 0.027 g/cm2 Clinical Information Provided by Patient: Has used the following medications: Vitamin D Has the following medical conditions: Cancer, Hysterectomy Patient maximum height was 67 Menopause Age: 52 No regular weight bearing exercise Drinks caffeinated beverages Onset of menses at age 16 Number of children 3 Impression: The patient has low bone mass, based on the Total Spine T-score. The patient has an estimated ten-year risk of hip fracture of 0.6% and an estimated ten-year risk of major fracture of 8.3%, based on the WHO FRAX algorithm. The BMD for the AP Spine (L1-L4) decreased, changing by -9.3% since the last DXA exam. The BMD for the Total Hip(Right) decreased, changing by -6.4% since the last D
--- NOTE | ~2023-06-10 | MM_ITS ---
EXAMINATION: MM screening [facility]baldo BI w princess HISTORY: Screening mammogram TECHNIQUE: Craniocaudal and mediolateral oblique 3-D tomosynthesis images were obtained and synthetic 2-D images were generated. CAD analysis was submitted and interpreted. COMPARISON: 05/31/2022 bilateral screening mammogram 05/29/2021 diagnostic left mammogram and limited left breast ultrasound examination 04/28/2021, 02/16/2020 bilateral screening mammogram examinations BREAST PARENCHYMAL COMPOSITION: The breasts are heterogeneously dense, which may obscure small masses . FINDINGS: There is stable asymmetry/architectural distortion in the upper outer left breast with mild retraction; history of prior left partial mastectomy for breast cancer, with likely residual scarrin g. There is evidence of some fat necrosis and benign calcification. Occasional bilateral benign calci fications are again present. No interval mass lesion or new architectural distortion or retraction or skin thickening or malignant calcification or significant new or developing density of either breast is noted. IMPRESSION: 1. Upper outer quadrant asymmetry/architectural distortion, chronic, likely due to scarring from left partial mastectomy for history of breast cancer No mammographic evidence of malignancy. 2. Recommend routine screening mammography in one year. BI-RADS Category 2: Benign finding(s). Reviewed, dictated and finalized at location A. IMPRESSION: 1. Upper outer quadrant asymmetry/architectural distortion, chronic, likely due to scarring from left partial mastectomy for history of breast cancer No mammo graphic evidence of malignancy. 2. Recommend routine screening mammography in one year. BI-RADS Category 2: Benign finding(s).
== END 2023-06-10 14:58 | disposition home or self-care (01) ==
PROVIDERS: PCP Nurse Practitioner; Visit Provider Internal Medicine Hematology & Oncology
DX: Z12.31 Encounter for screening mammogram for malignant neoplasm of breast (principal); Z78.0 Asymptomatic menopausal state; M85.88 Other specified disorders of bone density and structure, other site
CPT/HCPCS: 77063; 77067; 77080

== ENCOUNTER 2023-09-16 10:00 | Outpatient (CLI) | payer BC, SELFPAY ==
[2023-09-16 10:24] LABS: Basophils Absolute Auto 0.1 K/mm3 (0.0-0.1); Eosinophils Absolute Auto 0.2 K/mm3 (0-0.3); Eosinophils Percent Auto 2.9 % (0-4.4); Hematocrit 40.7 % (37.0-47.0); Hemoglobin 13.5 g/dL (12.0-15.0); Immature Granulocyte Absolute 0.02 K/mm3 (0.00-0.031); Immature Granulocyte Percent A 0.3 % (0-0.5); Lymphocytes Absolute Auto 1.74 K/mm3 (0.9-3.2); Lymphocytes Percent Auto 22.8 % (18.3-44.2); Mean Corpuscular HGB Conc 33.2 g/dl (32-36); Mean Corpuscular Hemoglobin 32.1 pg (26-34); Mean Corpuscular Volume 96.7 fl (80-100); Mean Platelet Volume 8.8 fl (7.4-10.4); Monocytes Percent Auto 13.1 % (2.6-8.5); Neutrophils Absolute Auto 4.6 K/mm3 (1.3-6.7); Neutrophils Percent Auto 59.9 % (45.5-73.1); Platelet Count Result 320 k/mm3 (150-375); Red Blood Count 4.21 M/mm3 (4.2-5.4); Red Cell Distribution Width 12.7 % (11.5-14.5); White Blood Count 7.6 K/mm3 (4.5-10.0)
[2023-09-16 12:08] LABS: Alanine Aminotransferase 24 U/L (6-35); Albumin Level 4.5 g/dL (3.5-5.1); Alkaline Phosphatase 78 U/L (38-126); Anion Gap 6 mmol/L (8-16); Aspartate Amino Transferase 48 U/L (14-36); Bilirubin,Total 0.5 mg/dL (0.2-1.3); Blood Urea Nitrogen 13 mg/dL (7-17); Carbon Dioxide 28 mmol/L (22-30); Chloride 100 mmol/L (98-107); Estimated Glomerular Filt Rate > 60; Glucose 97 mg/dL (65-110); Potassium 4.6 mmol/L (3.4-5.0); Sodium 134 mmol/L (137-145)
[2023-09-19 05:50] LABS: CA 15-3 9 U/mL (<32)
== END 2023-09-16 10:01 | disposition home or self-care (01) ==
PROVIDERS: PCP Nurse Practitioner; Visit Provider Internal Medicine Hematology & Oncology
DX: C50.412 Malignant neoplasm of upper-outer quadrant of left female breast (principal); Z17.0 Estrogen receptor positive status [ER+]
CPT/HCPCS: 36415; 80053; 85025; 86300

== ENCOUNTER 2023-10-02 11:02 | Outpatient (CLI) | payer BC, SELFPAY ==
--- NOTE | ~2023-10-02 | MMUS_ITS ---
EXAMINATION: MM diagnostic osbaldo LT w princess, US breast LT limited HISTORY: Pain and itching in the upper outer quadrant of the breast, history of left breast cancer. TECHNIQUE: Craniocaudal, mediolateral, and mediolateral oblique 3-D tomosynthesis images of the left breast were performed and synthetic 2-D images were generated. CAD analysis was submitted and interpr eted. High resolution limited left breast ultrasound was performed. COMPARISON: 06/10/2023, 05/31/2022, 05/29/2021, 04/28/2021 BREAST PARENCHYMAL COMPOSITION: The breasts are heterogeneously dense, which may obscure small masses . FINDINGS: MAMMOGRAPHIC FINDINGS: There are stable lumpectomy changes in the upper outer quadrant of the left breast. No suspicious mas s, calcification, or architectural distortion are identified. No mammographic correlate is identified for the reported pain and itching in the upper outer quadrant of the breast. ULTRASOUND: There is no evidence of focal abnormal solid or cystic mass in the vicinity of the reported pain and itching of the left breast. Expected post lumpectomy changes are seen. IMPRESSION: 1. No specific mammographic or sonographic correlate is identified for the patient's reported pain an d itching in the upper outer quadrant of the left breast Further evaluation at this time should be ba sed on clinical assessment. Continued follow-up physical examination is recommended. 2. Recommend routine screening mammography in one year. BI-RADS Category 2: Benign finding(s). Reviewed, dictated and finalized at location A. IMPRESSION: 1. No specific mammographic or sonographic correlate is identified for the duran ent's reported pain and itching in the upper outer quadrant of the left breast Further evaluation at this time should be based on clinical assessment. Continu ed follow-up physical examination is recommended. 2. Recommend routine screening mammography in one year. BI-RADS Category 2: Benign finding(s).
== END 2023-10-02 11:03 | disposition home or self-care (01) ==
PROVIDERS: PCP Nurse Practitioner; Visit Provider Internal Medicine Hematology & Oncology
DX: C50.412 Malignant neoplasm of upper-outer quadrant of left female breast (principal); Z17.0 Estrogen receptor positive status [ER+]
CPT/HCPCS: 76642; 77061; 77065; G0279

== ENCOUNTER 2023-12-05 14:14 | Outpatient (CLI) | payer BC, SELFPAY ==
[2023-12-05 14:29] LABS: Basophils Absolute Auto 0.1 K/mm3 (0.0-0.1); Basophils Percent Auto 1.1 % (0.2-1.2); Eosinophils Absolute Auto 0.3 K/mm3 (0-0.3); Hematocrit 41.2 % (37.0-47.0); Hemoglobin 13.9 g/dL (12.0-15.0); Immature Granulocyte Absolute 0.02 K/mm3 (0.00-0.031); Immature Granulocyte Percent A 0.2 % (0-0.5); Lymphocytes Absolute Auto 2.64 K/mm3 (0.9-3.2); Lymphocytes Percent Auto 29.6 % (18.3-44.2); Mean Corpuscular HGB Conc 33.7 g/dl (32-36); Mean Corpuscular Hemoglobin 32.5 pg (26-34); Mean Corpuscular Volume 96.3 fl (80-100); Monocytes Absolute Auto 1.1 K/mm3 (0.1-0.6); Monocytes Percent Auto 12.5 % (2.6-8.5); Neutrophils Absolute Auto 4.8 K/mm3 (1.3-6.7); Neutrophils Percent Auto 53.6 % (45.5-73.1); Platelet Count Result 342 k/mm3 (150-375); Red Blood Count 4.28 M/mm3 (4.2-5.4); White Blood Count 8.9 K/mm3 (4.5-10.0)
[2023-12-05 20:17] LABS: Alanine Aminotransferase 27 U/L (6-35); Albumin Level 4.3 g/dL (3.5-5.1); Alkaline Phosphatase 84 U/L (38-126); Anion Gap 9 mmol/L (8-16); Aspartate Amino Transferase 37 U/L (14-36); Bilirubin,Total 0.3 mg/dL (0.2-1.3); Blood Urea Nitrogen 14 mg/dL (7-17); Calcium 9.1 mg/dL (8.4-10.2); Carbon Dioxide 26 mmol/L (22-30); Chloride 104 mmol/L (98-107); Estimated Glomerular Filt Rate > 60; Glucose 87 mg/dL (65-110); Potassium 3.8 mmol/L (3.4-5.0); Sodium 139 mmol/L (137-145)
[2023-12-08 04:04] LABS: CA 15-3 8 U/mL (<32)
== END 2023-12-05 14:15 | disposition home or self-care (01) ==
LOC: ANHLAB 14:15
PROVIDERS: PCP Nurse Practitioner; Visit Provider Internal Medicine Hematology & Oncology
DX: C50.412 Malignant neoplasm of upper-outer quadrant of left female breast (principal); Z17.0 Estrogen receptor positive status [ER+]
CPT/HCPCS: 36415; 80053; 85025; 86300

== ENCOUNTER 2024-06-12 14:14 | Outpatient (CLI) | payer BC, SELFPAY ==
--- NOTE | ~2024-06-12 | MM_ITS ---
EXAMINATION: MM screening [facility] BI w princess HISTORY: Screening TECHNIQUE: Craniocaudal and mediolateral oblique 3-D tomosynthesis images were obtained and synthetic 2-D images were generated. CAD analysis was submitted and interpreted. COMPARISON: Comparison to multiple prior studies sequentially, with oldest reviewed study dated 02/15. BREAST PARENCHYMAL COMPOSITION: Dense: The breasts are heterogeneously dense, which may obscure small masses FINDINGS: There is stable lumpectomy changes upper outer quadrant of the left breast. There are coars e clustered calcifications, likely focal fat necrosis. There is no evidence of suspicious mass, calci fication, or architectural distortion to suggest malignancy in either breast. There has been no suspi cious interval change. IMPRESSION: 1. No mammographic evidence of malignancy. 2. Recommend routine screening mammography in one year. BI-RADS Category 2: Benign finding(s). Reviewed, dictated and finalized at location B.
== END 2024-06-12 14:15 | disposition home or self-care (01) ==
LOC: ANHIMG 14:15
PROVIDERS: PCP Nurse Practitioner; Visit Provider Internal Medicine Hematology & Oncology
DX: Z12.31 Encounter for screening mammogram for malignant neoplasm of breast (principal)
CPT/HCPCS: 77063; 77067

== ENCOUNTER 2024-08-25 12:40 | Outpatient (CLI) | payer BC, SELFPAY ==
[2024-08-25 13:01] LABS: Basophils Absolute Auto 0.1 K/mm3 (0.0-0.1); Basophils Percent Auto 0.9 % (0.2-1.2); Eosinophils Absolute Auto 0.3 K/mm3 (0-0.3); Eosinophils Percent Auto 3.4 % (0-4.4); Hematocrit 40.9 % (37.0-47.0); Hemoglobin 13.9 g/dL (12.0-15.0); Immature Granulocyte Absolute 0.03 K/mm3 (0.00-0.031); Immature Granulocyte Percent A 0.4 % (0-0.5); Lymphocytes Absolute Auto 2.31 K/mm3 (0.9-3.2); Mean Corpuscular Hemoglobin 32.5 pg (26-34); Mean Corpuscular Volume 95.6 fl (80-100); Mean Platelet Volume 8.8 fl (7.4-10.4); Monocytes Absolute Auto 1.1 K/mm3 (0.1-0.6); Monocytes Percent Auto 13.2 % (2.6-8.5); Neutrophils Absolute Auto 4.7 K/mm3 (1.3-6.7); Neutrophils Percent Auto 55.1 % (45.5-73.1); Platelet Count Result 318 k/mm3 (150-375); Red Blood Count 4.28 M/mm3 (4.2-5.4); Red Cell Distribution Width 12.9 % (11.5-14.5); White Blood Count 8.6 K/mm3 (4.5-10.0)
[2024-08-25 16:49] LABS: Alanine Aminotransferase 22 U/L (6-35); Albumin Level 4.4 g/dL (3.5-5.1); Alkaline Phosphatase 74 U/L (38-126); Anion Gap 9 mmol/L (4-12); Aspartate Amino Transferase 23 U/L (14-36); Bilirubin,Total 0.3 mg/dL (0.2-1.3); Blood Urea Nitrogen 14 mg/dL (7-17); Calcium 9.2 mg/dL (8.4-10.2); Carbon Dioxide 27 mmol/L (22-30); Chloride 99 mmol/L (98-107); Estimated Glomerular Filt Rate > 60; Glucose 102 mg/dL (65-110); Potassium 4.2 mmol/L (3.4-5.0); Sodium 135 mmol/L (137-145)
[2024-08-27 05:19] LABS: CA 15-3 9 U/mL (<32)
== END 2024-08-25 12:41 | disposition home or self-care (01) ==
LOC: ANHLAB 12:43
PROVIDERS: PCP Nurse Practitioner; Visit Provider Internal Medicine Hematology & Oncology
DX: C50.412 Malignant neoplasm of upper-outer quadrant of left female breast (principal); Z17.0 Estrogen receptor positive status [ER+]
CPT/HCPCS: 36415; 80053; 85025; 86300

== ENCOUNTER 2025-06-10 13:06 | Outpatient (CLI) | payer BC, SELFPAY ==
--- OUTSIDE RECORDS SUMMARY | 2025-06-10 13:10 | XMS_ITS | Clinical Summary ---
Author Organization [facility] Address [address] [place] [address] Care Team Providers Care Experimental Machinist Name Role Phone Yannick Mckeon MD Primary Care Provider [phone]- [phone] Allergies Active Allergy Reactions Criticality Noted Date Comments Gabriela(Acetamin-C a Carb) Other (See Comments) 11/06/2021 Tingling in lips and tongue Penicillins Other (See Comments) Low 06/17/2020 Numbness in mouth Medications multivitamin (DAILY-SVETA) tablet Take 1 Tablet by mouth daily. Active ascorbic acid, vitamin C, (VITAMIN C) 1,000 mg Tablet Take 1,000 mg by mouth daily. Active Cholecalciferol , Vitamin D3, (VITAMIN D3) 400 unit capsule Take 400 Units by mouth. Active hydrALAZINE (APRESOLINE) 50 mg tablet TAKE 1 TABLET BY MOUTH TWICE A DAY 4 09/02/2018 Active amLODIPine (NORVASC) 5 mg tablet Take 5 mg by mouth daily. Active aspirin (ECOTRIN EC) 81 mg Tablet, Delayed Release (E.C.) Take 81 mg by mouth daily. Active Fluticasone Furoate (VERAMYST) 27.5 mcg/actuation [place], Suspension 2 QHS 08/23/2008 Active azelastine (ASTELIN) 137 mcg/actuation nasal spray SPRAY 2 SPRAYS INTO EACH NOSTRIL TWICE A DAY 3 09/29/2019 Active fexofenadine (ZOË) 180 mg tablet Take 180 mg by mouth. Active Stool Softener 100 mg capsule TAKE 2 CAPSULES BY MOUTH DAILY 02/04/2021 Active albuterol sulfate 90 mcg/Actuation inhaler INHALE 2 PUFFS 3 TIMES DAILY NEEDED 03/26/2022 Active valsartan (DIOVAN) 80 mg tablet Take 80 mg by mouth 2 times daily. 06/02/2022 Active hydroCHLOROthia zide 50 mg tablet Take 50 mg by mouth daily. Active cyanocobalamin (VITAMIN B-12) 500 mcg tablet Take 500 mcg by mouth daily. Active venlafaxine (EFFEXOR XR) 37.5 mg Extended Release 24 hour capsuleIndicati ons:Malignant neoplasm of upper-outer quadrant of left breast in female, estrogen receptor positive (CMS/HCC) TAKE 1 CAPSULE BY MOUTH EVERY DAY 90 Capsule 1 04/08/2025 Active Active Problems Problem Noted Date Diagnosed Date Malignant neoplasm of upper- outer quadrant of left female breast 04/15/2017 Encounters Date Type Department Care Team Description 05/19/2025 External Device Data ST[facility] ABSTRACTION Provider, Abstract 04/27/2025 External Device Data [facility] ABSTRACTION Provider, Abstract 04/22/2025 External Device Data [facility] ABSTRACTION Provider, Abstract 04/21/2025 External Device Data [facility] ABSTRACTION Provider, Abstract 04/08/2025 Refill [facility] Oncology and Hematology [address] [place] [id number] Manpreet Hand MD Malignant neoplasm of upper-outer quadrant of left breast in female, estrogen receptor positive (CMS/HCC) 03/16/2025 External Device Data ST[facility] ABSTRACTION Provider, Abstract from Last 3 Months Family History Medical History Relation Name Comments Healthy Brother 1 Hypertension Brother 2 Diabetes Brother 3 Lung Cancer Brother 3 Other Father Diabetes Mother Heart Disease Mother Other Sister 1 Cancer Sister 2 Healthy Sister 3 Relation Name Status Comments Brother 1 Alive Brother 2 Alive Brother 3 Father Mother Alive Sister 1 Alive Sister 2 Sister 3 Alive Social History Tobacco Use Types Packs/Day Years Used Date Smoking Tobacco: Former Cigarettes 0.5 35 0 02/28/1982 - 02/28/2017 Smokeless Tobacco: Never Alcohol Use Standard Drinks/Week Comments Yes 0 (1 standard drink = 0.6 oz pur e alcohol) occasional Comments No Sex and Gender Information Value Date Recorded Sex Assigned at Not on file Legal Sex Female 10:30 AM CDT Gender Identity Not on file Sexual Orientation Not on file Last Filed Vital Signs Vital Sign Reading Time Taken Comments Blood Pressure 122/88 09/10/2024 10:22 AM CDT Pulse 81 09/10/2024 10:20 AM CDT Temperature 36.7 C (98 F) 09/10/2024 10:20 AM CDT Respiratory Rate 14 09/10/2024 10:20 AM CDT Oxygen Saturation 96% 09/10/2024 10:20 AM CDT Inhaled Oxygen Concentration - - Weight 69.2 kg (152 lb 9.6 oz) 09/10/2024 10:20 AM CDT Height 167.6 cm (5' 6) 06/07/2022 2:41 PM CDT Body Mass Index 24.63 06/07/2022 2:41 PM CDT Plan of Treatment Upcoming Encounters Date Type Department Care Team (Late st Contact Info) Description 06/21/2025 10:15 AM CDT Office Visit [facility] Oncology and Hematology [facility] [address] [facility] [address] [place] [address] Manpreet Hand MD [address] [place] [address] Health Maintenance Due Date Last Done Comments FIT-DNA Q 3 years 2002 FIT/FOBT Q 1 year 2002 Flex Sig/CT Colonography Q 5 years 2002 PNEUMOCOCCAL VACCINE 50+ YEA RS (1 of 1 - PCV) 2007 ZOSTER VACCINE (1 of 2) 2007 Preventative Visit- Commercial 12/02/2024 06/28/2022 BREAST CANCER SCREENING 06/12/2025 06/12/20 24, 10/02/2023, 06/10/2023, Additional history exists INFLUENZA VACCINE (#1) 2025 09/20/2023, 2021 OSTEOPOROSIS SCREENING 06/10/2028 3, 04/29/2018, 04/29/2018 COLORECTAL SCREENING 02/08/2032 02/07/2022 Colorectal Cancer Screening 02/08/2032 RSV VACCINE (60+ or ) (1 - 1-dose 75+ series) 2032 DTAP/TDAP/TD VACCINES (2 - T d or Tdap) 06/28/2032 06/28/2022 Procedures Procedure Name Priority Date/Time Associated Diagnosis Comments MAMMO SCREENING BILAT Routine 06/12/2024 3:35 PM CDT XR DEXA BONE DENSITY AXIAL 1 OR MORE SITES Routine 06/10/2023 10:47 AM CDT from Last 3 Months or Most Recently Relevant to Health Maintenance Results * MAMMO SCREENING BILAT (06/12/2024 3:35 PM CDT) Anatomical Region Laterality Modality Breast Bilateral Mammography Manpreet Hand MD MAMMO ORDERABLES Final Result * XR DEXA BONE DENSITY AXIAL 1 OR MORE SITES (06/10/2023 10:47 AM CDT) Anatomical Region Laterality Modality Other Historical Provider DIAGNOSTIC IMAGING ORDERABLE S Final Result from Last 3 Months or Most Recently Relevant to Health Maintenance Insurance [facility] [employer] [facility] [employer] Care Teams Experimental Machinist Relationship Specialty Start Date End Date Yannick Mckeon MD [address] [place] [address] [address] [place] [address] PCP - General Family Practice 04/30/19
--- OUTSIDE RECORDS SUMMARY | 2025-06-10 13:10 | XMS_ITS | Encounter Summary ---
Author Organization [facility] Address [facility] [place] [address] Care Team Providers Care Precision Instrument Maker Name Role Phone Geri Rios NP Primary Care Provider +1 [phone] Encounter Details Date Type Department Care Team (Late st Contact Info) Description 08/20/2023 CytoPherx Message Enc [facility] [address] [place] [address] [facility] Provider covid Social History Tobacco Use Types Packs/Day Years Used Date Smoking Tobacco: Former Cigarettes Q uit: 2017 Passive Smoke Exposure: Past Smokeless Tobacco: Never Alcohol Use Standard Drinks/Week Comments Not Currently 0 (1 standard drink = 0.6 oz pur e alcohol) PHQ-2 Answer Date Recorded Patient Health Questionnaire-2 Score 4 02/13/2023 Comments No Sex and Gender Information Value Date Recorded Sex Assigned at Female 01/29/2025 10:12 AM OWNER ORAL SURGEON Legal Sex Female 5:00 PM CDT Gender Identity Female 01/29/2025 10:12 AM OWNER ORAL SURGEON Sexual Orientation Straight 01/29/2025 10 :12 AM OWNER ORAL SURGEON documented as of this encounter Plan of Treatment Upcoming Encounters Date Type Department Care Team (Late st Contact Info) Description 09/30/2025 11:00 AM CDT Office Visit [facility] [address] [place], [place] [id number] Geri Rios NP [address] [place] [address] documented as of this encounter Visit Diagnoses Not on filedocumented in this encounter Additional Health Concerns Infection Onset Date Last Indicated Resolved Time COVID-19 Rule Out 08/20/2023 08/20/2023 08/20/2023 1:42 PM CDT Assessment Noted Time PHQ-9 Depression Total Score: 10 023 2:37 PM CDT documented as of this encounter Care Teams Precision Instrument Maker Relationship Specialty Start Date End Date Geri Rios NP [address] [place] [address] PCP - General NURSE PRACTITIONER 06/28/22 documented as of this encounter
--- OUTSIDE RECORDS SUMMARY | 2025-06-10 13:10 | XMS_ITS | Encounter Summary ---
Author Organization [facility] Address [address] [place] [address] Care Team Providers Care Exchange Specialist Name Role Phone Unavailable Primary Care Provider Unavailabl e Encounter Details Date Type Department Care Team (Late st Contact Info) Description 01/28/2019 Lab Requisition [facility] DermPath Lab [address] [place] [address] Eder Simental MD [address] [place] [address] Social History Tobacco Use Types Packs/Day Years Used Date Smoking Tobacco: Never Assessed Comments Unknown Sex and Gender Information Value Date Recorded Sex Assigned at Not on file Legal Sex Female 12:31 PM BIOFUELS TECHNOLOGY MANAGER Gender Identity Not on file Sexual Orientation Not on file documented as of this encounter Plan of Treatment Not on file documented as of this encounter Procedures Procedure Name Priority Date/Time Associated Diagnosis Comments DERMATOPATHOLOGY Routine 01/27/2019 12:0 0 AM BIOFUELS TECHNOLOGY MANAGER documented in this encounter Results * DERMATOPATHOLOGY (01/27/2019 12:00 AM BIOFUELS TECHNOLOGY MANAGER) Case Report Dermatopathology Report Case: [id number] Authorizing Provider: Eder Simental MD Collected: 01/27/2019 12:00 AM Pathologist: Krys Montes MD Received: 01/28/2019 12:35 PM Specimen: Skin, left upper thigh ant 9 1:54 PM BIOFUELS TECHNOLOGY MANAGER DERMATOPATHOLOGY LABORATORY Final Diagnosis Specimen A. SKIN, left upper thigh ant: SEBORRHEIC KERATOSIS, MACULAR, CONSISTENT WITH (L82.1) (see microscopic description) 9 1:54 PM BIOFUELS TECHNOLOGY MANAGER DERMATOPATHOLOGY LABORATORY at 1354 BIOFUELS TECHNOLOGY MANAGER Clinical History Several mo hx of lesion on left thigh, growing size irrit by shaving, pt just finished radiation & chemo for breast cancer. 1:54 PM [facility] DERMATOPATHOLOGY LABORATORY Gross Description Specimen A: Received is one formalin filled container labeled with the patients name and designated left upper thigh ant. The specimen consists of a shave removal measuring [id number]. Jar 0. 1:54 PM [facility] DERMATOPATHOLOGY LABORATORY Microscopic Description Specimen A. SKIN, left upper thigh ant: Sections show a relatively broad, flat proliferation of small keratinocytes. The surface is gently papillated, and there is increased basilar pigmentation. There is minimal dermis present for evaluation. Additional deeper sections were obtained and reviewed. 1:54 PM [facility] DERMATOPATHOLOGY LABORATORY Disclaimer An external and internal positive and negative controls are appropriate for the histochemical, immunohistochemical and immunofluorescence stain(s) in this case (if any), except where stated explicitly. The performance characteristics of the stain(s) cited in this report were developed and its performance characteristic determined by the Dermatopathology Laboratory at [facility], directed by Dr. Cheikh Vuong. These tests need not be, and therefore are not, approved by the [place] Food and Drug Administration. The tests are used for clinical purposes. Billing Codes Specimen Charges Stain Charges 06558 1 1:54 PM [facility] DERMATOPATHOLOGY LABORATORY Embedded Images 1:54 PM [facility] DERMATOPATHOLOGY LABORATORY Pathology/Cytolog y TISSUE SPECIMEN FROM SKIN / Unknown 01/27/2019 01/28/2019 12:35 PM BIOFUELS TECHNOLOGY MANAGER us Eder Simental MD LAB - PATHOLOGY/CYTOLOGY ORDERAB LES Final Result DERMATOPATHOLOGY LABORATORY [facility] - Department of Dermatology [address] [place] [address], [facility] [phone] documented in this encounter Visit Diagnoses Not on filedocumented in this encounter
--- OUTSIDE RECORDS SUMMARY | 2025-06-10 13:10 | XMS_ITS | Encounter Summary ---
Author Organization [id number] Address [address] [place] [address] Care Team Providers Care Billing Supervisor Name Role Phone Yannick Mckeon MD Primary Care Provider [phone]- [phone] Reason for Visit * Reason Comments Medication Refill Encounter Details Date Type Department Care Team ([facility] Contact Info) Description 12/17/2021 Refill [facility] Oncology and Hematology [facility] [address] [place] [address] Manpreet Hand MD [address] [place] [address] Malignant neoplasm of upper-outer quadrant of left breast in female, estrogen receptor positive (CMS/HCC) Social History Tobacco Use Types Packs/Day Years [...] Encounters Date Type Department Care Team (Late Contact Info) Description 06/21/2025 10:15 AM CDT Office Visit [facility] Oncology and Hematology [place] [address] [place] [address] Manpreet Hand MD [address] [place] [address] documented as of this encounter Visit Diagnoses Diagnosis Malignant neoplasm of upper-outer quadrant of left breast in female, estrogen receptor positive (CMS/HCC) documented in this encounter Care Teams Billing Supervisor Relationship Specialty Start Date End Date Yannick Mckeon MD [address] [place] [address] [address] [place] [address] PCP - General Family Practice 04/30/19 documented as of this encounter
--- OUTSIDE RECORDS SUMMARY | 2025-06-10 13:10 | XMS_ITS | Encounter Summary ---
Author Organization [facility] Address [address] [place] [address] Care Team Providers Care Meatman Name Role Phone Unavailable Primary Care Provider Unavailabl e Encounter Details Date Type Department Care Team (Late st Contact Info) Description 03/19/2025 Lab Requisition [facility] - DermPath Lab [address] [place] [address] Eder Simental MD [address] [place] [address] Social History Tobacco Use Types Packs/Day Years Used Date Smoking Tobacco: Never Assessed Comments Unknown Sex and Gender Information Value Date Recorded Sex Assigned at Not on file Legal Sex Female 12:31 PM STORE DETECTIVE Gender Identity Not on file Sexual Orientation Not on file documented as of this encounter Plan of Treatment Not on file documented as of this encounter Procedures Procedure Name Priority Date/Time Associated Diagnosis Comments DERMATOPATHOLOGY Routine 03/18/2025 12:0 0 AM CDT documented in this encounter Results * DERMATOPATHOLOGY (03/18/2025 12:00 AM CDT) Case Report Dermatopathology Report Case: [id number] Authorizing Provider: Eder Simental MD Collected: 03/18/2025 12:00 AM Ordering Location: [facility] - Received: 03/19/2025 07:42 AM DermPath Lab Pathologist: Shantal Pineda MD Specimen: Skin, right nasal wall 9:45 AM CDT DERMATOPATHOLOGY LABORATORY Final Diagnosis Specimen A. SKIN, right nasal wall: BASAL CELL CARCINOMA, NODULAR TYPE (C44.311) 9:45 AM CDT DERMATOPATHOLOGY LABORATORY at 0945 CDT Clinical History Hemangioma vs. BCC 9:45 AM CDT DERMATOPATHOLOGY LABORATORY Gross Description Specimen A: Received is one formalin filled container labeled with the patient's name and designated right nasal wall. The specimen consists of a curettage and desiccation biopsy measuring 6x4x2 mm. Jar 0. 9:45 AM CDT DERMATOPATHOLOGY LABORATORY Microscopic Description Specimen A. SKIN, right nasal wall: Within the dermis there are aggregates of basaloid cells with a high nuclear to cytoplasmic ratio and peripheral palisading. 9:45 AM CDT DERMATOPATHOLOGY LABORATORY Disclaimer An external and internal positive and negative controls are appropriate for the histochemical, immunohistochemical and immunofluorescence stain(s) in this case (if any), except where stated explicitly. The performance characteristics of the stain(s) cited in this report were developed and its performance characteristic determined by the Dermatopathology Laboratory at [facility], directed by Dr. Cheikh Vuong. These tests need not be, and therefore are not, approved by the [place] Food and Drug Administration. The tests are used for clinical purposes. Billing Codes Specimen Charges Stain Charges 23544 1 9:45 AM CDT DERMATOPATHOLOGY LABORATORY Embedded Images 9:45 AM CDT DERMATOPATHOLOGY LABORATORY Pathology/Cytolog y TISSUE SPECIMEN FROM SKIN / Unknown 03/18/2025 03/19/2025 7:42 AM CDT Eder Simental MD LAB - PATHOLOGY/CYTOLOGY ORDERAB LES Final Result DERMATOPATHOLOGY LABORATORY [facility] - Department of Dermatology [address] [place] [address], [facility] [phone] documented in this encounter Visit Diagnoses Not on filedocumented in this encounter
--- OUTSIDE RECORDS SUMMARY | 2025-06-10 13:10 | XMS_ITS | Encounter Summary ---
Author Organization [facility] Address [facility] [place] [address] Care Team Providers Care Racing Secretary Name Role Phone Geri Rios NP Primary Care Provider [phone] Encounter Details Date Type Department Care Team (Late st Contact Info) Description 05/31/2025 Results Follow-Up [facility] [address] [phone] Geri Rios NP [address] [phone] LIPID PANEL Social History Tobacco Use Types Packs/Day Years Used Date Smoking Tobacco: Former Cigarettes Q uit: 2017 Passive Smoke Exposure: Past Smokeless Tobacco: Never Alcohol Use Standard Drinks/Week Comments Not Currently 0 (1 standard drink = 0.6 oz pur e alcohol) PHQ-2 Answer Date Recorded Patient Health Questionnaire-2 Score 4 03/15/2025 Comments No Sex and Gender Information Value Date Recorded Sex Assigned at Female 01/29/2025 10:12 AM VP INFORMATION TECHNOLOGY Legal Sex Female 5:00 PM CDT Gender Identity Female 01/29/2025 10:12 AM VP INFORMATION TECHNOLOGY Sexual Orientation Straight 01/29/2025 10 :12 AM VP INFORMATION TECHNOLOGY documented as of this encounter Plan of Treatment Upcoming Encounters Date Type Department Care Team (Late st Contact Info) Description 09/30/2025 11:00 AM CDT Office Visit [facility] [address] [id number] Geri Rios NP [address] [place] [address] documented as of this encounter Visit Diagnoses Not on filedocumented in this encounter Additional Health Concerns Assessment Noted Time PHQ-9 Depression Total Score: 9 03/15/20 25 9:20 AM CDT documented as of this encounter Care Teams Racing Secretary Relationship Specialty Start Date End Date Geri Rios NP [address] [place] [address] PCP - General NURSE PRACTITIONER 06/28/22 documented as of this encounter
--- OUTSIDE RECORDS SUMMARY | 2025-06-10 13:10 | XMS_ITS | Clinical Summary ---
Author Organization [facility] Address [address] [place] [address] Care Team Providers Care Stratigrapher Name Role Phone Geri Rios NP Primary Care Provider [phone] Allergies Active Allergy Reactions Criticality Noted Date Comments Amoxicillin Other (see comment) 06/28/2022 Tingling in lips Brimonidine Other (see comment) Low 01/25/2025 She got a weird taste in her mouth and then her lips and tongue started tingling. Calcium Carbonate Other (see comment) Low Tingling in lips and tongue Penicillins Other (see comment) Low 06/17/2020 Lips get tingly and numb Numbness in mouth Numbness in mouth Medications fluticasone propionate 50 MCG/ACT nasal spray 1 spray by Nasal route daily. Active aspirin 81 MG chewable tablet Chew 1 tablet (81 mg total) by mouth daily. Active fexofenadine 180 MG tablet Take 1 tablet (180 mg total) by mouth daily. Active Multiple Vitamin (MULTIVITAMIN OR) Active Ascorbic Acid (VITAMIN C OR) Activ e Cholecalciferol (VITAMIN D-3 OR) Active azelastine (ASTELIN) 0.1 % nasal sprayIndication s:Allergic rhinitis, unspecified seasonality, unspecified trigger 1 spray by Nasal route 2 (two) times daily. Use in each nostril as directed 30 mL 3 09/27/20 22 Active vitamin B-12 (CYANOCOBALAMIN ) 500 MCG tablet Take 1 tablet (500 mcg total) by mouth daily. Active venlafaxine XR (EFFEXOR-XR) 37.5 MG 24 hr capsuleIndicati ons:Anxiety and depression Take 2 capsules (75 mg total) by mouth daily. 90 capsule 1 02/14/20 23 Active chlorthalidone (HYGROTEN) 25 MG tabletIndicatio ns:Hypertension , unspecified type Take 1 tablet (25 mg total) by mouth daily. 90 tablet 1 07/19/20 23 Active cyclobenzaprine (FLEXERIL) 5 MG tabletIndicatio ns:Muscle spasms of both lower extremities TAKE 1 TABLET BY MOUTH 2 TIMES DAILY NEEDED FOR MUSCLE SPASMS. 90 tablet 1 10/09/20 23 Active albuterol sulfate HFA 108 (90 Base) MCG/ACT inhalerIndicati ons:Acute cough,COVID-19 Inhale 2 puffs into the lungs every 6 (six) hours as needed for Wheezing. 6.7 g 1 04/16/20 24 Active hydrALAZINE (APRESOLINE) 50 MG tabletIndicatio ns:Hypertension , unspecified type take 1 tablet by mouth four times a day 360 tablet 1 05/29/20 24 Active amLODIPine (NORVASC) 10 MG tabletIndicatio ns:Hypertension , unspecified type TAKE 1 TABLET BY MOUTH EVERY DAY 90 tablet 3 01/17/20 25 Active brimonidine (ALPHAGAN) 0.2 % ophthalmic solution Place 1 drop into both eyes 2 (two) times daily. 01/06/20 25 Active rosuvastatin (CRESTOR) 10 MG tabletIndicatio ns:Hypercholest eremia Take 1 tablet (10 mg total) by mouth nightly at bedtime. 90 tablet 1 03/30/20 25 Active VRAYLAR 1.5 MG capsuleIndicati ons:Severe major depressive disorder (CMS/HCC HHS/HCC) TAKE 1 CAPSULE BY MOUTH DAILY. 30 capsule 04/08/20 25 Active valsartan (DIOVAN) 160 MG tabletIndicatio ns:Hypertension , unspecified type TAKE 1 TABLET BY MOUTH TWICE A DAY 180 tablet 1 06/08/20 25 Active valsartan (DIOVAN) 160 MG tabletIndicatio ns:Hypertension , unspecified type TAKE 1 TABLET BY MOUTH TWICE A DAY 180 tablet 1 02/09/20 25 025 Discontinued Active Problems Problem Noted Date Diagnosed Date Prediabetes 04/01/2025 Overview (04/01/2025): A1C 6.1 in March. Denies any polyuria, polydipsia, or polyphagia. Denies neuropathy. Assessment & Plan (04/01/2025 9:13 AM CDT): Recommend diet changes alone at this time. Encourage following a low fat, low carb diet, encorperate whole foods such as fresh fruits and vegetables and whole grains into your diet, encourage 5 small meals per day. Avoid sugar-sweetened beverages, added sugars, processed meats, refined grains and oils or other processed foods. Encourage to get at least 150 minutes of moderate aerobic activity or 75 minutes of vigorous aerobic activity a week, or a combination of moderate and vigorous activity. Hypercholesteremia 03/31/2025 Overview (03/31/2025): The 10-year ASCVD risk score (Judy GARCÍA, et al., 2019) is: 11.7% Values used to calculate the score: Age: 69 years Sex: Female Is Non- : No Diabetic: No Tobacco smoker: No Systolic Blood Pressure: 142 mmHg Is BP treated: Yes HDL Cholesterol: 58 MG/DL Total Cholesterol: 232 MG/DL Assessment & Plan (04/01/2025 9:14 AM CDT): Chronic condition and starting new medication. Informed patient of ASCVD risk factor. Since score is greater than 7.5% we discussed statin therapy. Will begin Rosuvastatin 10 mg at bedtime. Discussed with patient how to take and side effects. Patient to have lipid panel rechecked in 8 weeks. Encourage following a healthy well balance diet. Limit saturated and trans fats. Encourage to get plenty of lean meats in your diet and grilled fish. Recommend eating at least 2 servings of fruits and vegetables per day. Encourage to limit sugar, processed foods, and large amount of carbohydrates. Other fatigue 01/29/2023 Hypertension, unspecified type 06/28/2022 Overview (04/01/2025): Chronic condition. Currently well-controlled with valsartan 160 mg twice daily, chlorthalidone 25 mg daily, amlodipine 10 mg daily, and hydralazine 50 mg 4 times a day. Denies chest pain, palpitations, shortness of breath, dizziness, lightheadedness or lower extremity edema. Denies any orthopnea or PND. Today she is a little anxious due to a recent even so she believes her BP maybe up due to that. Assessment & Plan (04/01/2025 9:24 AM CDT): Chronic condition, but not controlled today in office pt believes because she is a little anxious today d/t a recent event but otherwise she reports her BP's have been controlled.. She will monitor at home and get back with me on her home BP readings.. No changes need at this time. Goal for BP to stay below 140/90. Encourage lifestyle modifications to include healthy eating, decrease salt and caffeine in diet, routine exercise. Encourage stress relieving activities as well. Assessment & Plan (03/15/2025 9:35 AM CDT): Chronic condition. Controlled. No changes need at this time. Goal for BP to stay below 140/90. Encourage lifestyle modifications to include healthy eating, decrease salt and caffeine in diet, routine exercise. Recurrent major depressive disorder 06/28/2022 Overview (04/01/2025): Was started on Vraylar a month ago to help with her major depressive disorder. She reports she is doing very well with use. Denies any SI/HI. Denies any side effects with use. Assessment & Plan (04/01/2025 9:22 AM CDT): Chronic condition. Controlled. No changes needed at this time. Assessment & Plan (03/15/2025 10:11 AM CDT): Chronic condition not controlled. Since pt did not tolerate higher dose of Effexor will add on Vraylar at 1.5mg first starting every other day for major depressive disorder. I informed patient that we can for start with obtaining lab work to rule out any thyroid, B12, vitamin D, or folate acid deficiency but she would still like to start Vrylar in adjust with checking her lab work at this time. Pt is already having an increase appetite and weight gain so I would like to avoid Abilify or Seroquel which are prone to cause further increase appetite and weight gain. Discussed with patient how to take this medication and side effects to monitor for. Pt to follow up in 2 weeks. Encourage daily physical activity, getting outside daily to help boost mood. Chronic sinusitis 06/17/2020 Malignant neoplasm of upper- outer quadrant of left female breast ([facility]) 04/15/2017 Resolved Problems Problem Noted Date Diagnosed Date Resolved Date Severe major depressive diso rder ([facility]) 04/01/2025 04/01/2025 Encounters Date Type Department Care Team Description 05/31/2025 9:50 AM CDT Allied Health/Nurse Visit [address] [place] [address] Geri Rios NP Lab Draw; Hypertension (Nurse visit Patient presents for lab and HTN blood pressure check) 05/31/2025 Results Follow-Up [address] [place] [address] Geri Rios NP LIPID PANEL 05/31/2025 Travel 05/29/2025 Scan AdVolume INFO SRVCS Scanned, [facility] 04/07/[address] [place] [address] Geri Rios NP Information 04/01/[address] [place] [address] Geri Rios NP Medication Problem 04/01/[address] [place] [address] Geri Rios NP Blood Pressure (Follow up on BP) 03/30/2025 2:20 PM CDT Office Visit [address] [place] [address] Geri Rios NP Hypertension (Patient presents for a 2 week follow up hyperlipidemia. Hypertension, depression, and labs) 03/30/2025 Scan HEALTH INFO SRVCS Scanned, [facility] 03/30/2025 Travel 03/18/2025 Results Follow-Up [address] [place] [address] Geri Rios, DENEEN FOLIC ACID SERUM, VITAMIN B-12, VITAMIN D, 25 OH, Additional followed-up results: 5 03/15/2025 9:20 AM CDT Office Visit [address] [place] [address] Geri Rios NP Follow Up (Patient presents to follow up on chronic conditions and labs); Depression (C/o increased depression, fatigue, not wanting to do anything) 03/15/2025 Travel from Last 3 Months Immunizations Immunization Administration Dates Next Due Fluzone High Dose - >Age 65 (Prefilled Syringe) 09/20/2023,09/27/2022 Influenza Adult (Generic) 09/05/2021,10/06/2020 Tdap (Adacel) 06/28/2022 Family History Medical History Relation Comments Diabetes Brother Diabetes Maternal Grandmother Diabetes Mother Heart Disease Mother Diabetes Paternal Grandmother Relation Status Comments Brother Maternal Grandmother Mother Paternal Grandmother Social History Tobacco Use Types Packs/Day Years Used Date Smoking Tobacco: Former Cigarettes Q uit: 2017 Passive Smoke Exposure: Past Smokeless Tobacco: Never Tobacco Cessation:Counseling Given: Not Answered Alcohol Use Standard Drinks/Week Comments Not Currently 0 (1 standard drink = 0.6 oz pur e alcohol) PHQ-2 Answer Date Recorded Patient Health Questionnaire-2 Score 4 03/15/2025 Comments No Sex and Gender Information Value Date Recorded Sex Assigned at Female 01/29/2025 10:12 AM SCIENTIFIC INFORMATICS LEADER Legal Sex Female 5:00 PM CDT Gender Identity Female 01/29/2025 10:12 AM SCIENTIFIC INFORMATICS LEADER Sexual Orientation Straight 01/29/2025 10 :12 AM SCIENTIFIC INFORMATICS LEADER Last Filed Vital Signs Vital Sign Reading Time Taken Comments Blood Pressure 124/72 05/31/2025 9:40 AM CDT Pulse 80 05/31/2025 9:40 AM CDT Temperature 37.1 C (98.8 F) 05/31/2025 9:40 AM CDT Respiratory Rate 18 05/31/2025 9:40 AM CDT Oxygen Saturation 97% 05/31/2025 9:40 AM CDT Inhaled Oxygen Concentration - - Weight 71.7 kg (158 lb) 03/30/2025 2:27 PM CDT Height 167.6 cm (5' 6) 03/30/2025 2:27 PM CDT Body Mass Index 25.5 03/30/2025 2:27 PM CDT Plan of Treatment Upcoming Encounters Date Type Department Care Team (Late st Contact Info) Description 09/30/2025 11:00 AM CDT Office Visit [facility] Family Medicine - [place] [address] [place], [place] [id number] Geri Rios NP [address] [place], [place] [address] Health Maintenance Due Date Last Done Comments Pneumococcal Vaccine: 50+ Years (1 of 1 - PCV) 2007 Zoster Vaccines (1 of 2) 2007 COVID-19 Vaccine ( season) 2024 09/05/2021, 03/06/2021, 02/12/2021 Mammogram Screening 06/12/2025 06/10/2023, 05/29/2021, 02/16/2020, Additional history exists Colorectal Cancer Screening Colonoscopy (10 Years) 02/08/2032 02/07/2022 RSV Immunization or 60+ Years (1 - 1-dose 75+ series) 2032 DTaP, Tdap and Td Vaccines (2 - Td or Tdap) 06/28/2032 06/28/2022 Hepatitis C Completed 10/08/2022 Dexa Scan (General) Completed 06/10/2023, 8 PHQ-2 (Physician [place]) Completed 03/15/2025 Meningococcal B Vaccine Aged Out No l onger eligible based on patient's age to complete this topic Meningococcal Vaccine Aged Out No angela arminda eligible based on patient's age to complete this topic RSV Immunizations Under 20 Months Aged Out No longer eligible based on patient's age to complete this topic Procedures Procedure Name Priority Date/Time Associated Diagnosis Comments COLLECTION VENOUS BLOOD VENIPUNCTURE Routine 05/31/2025 9:48 AM CDT Hypercholesteremia LIPID PANEL Routine 05/31/2025 9:47 AM CDT Hypercholesteremia COLLECTION VENOUS BLOOD VENIPUNCTURE Routine 03/15/2025 10:18 AM CDT Vitamin D deficiency CBC W/DIFF AUTOMATED Routine 03/15/2025 10:17 AM CDT Hypertension, unspecified type COMPREHENSIVE METABOLIC PANEL Routine 03/15/2025 10:17 AM CDT Hypertension, unspecified type Impaired fasting glucose LIPID PANEL Routine 03/15/2025 10:17 AM CDT Hypercholesteremia TSH W/REFLEX Routine 03/15/2025 10:17 AM CDT Hypertension, unspecified type HEMOGLOBIN, GLYCOSYLATED Routine 03/15/2025 10:17 AM CDT Impaired fasting glucose VITAMIN D, 25 OH Routine 03/15/2025 10:1 7 AM CDT Vitamin D deficiency VITAMIN B-12 Routine 03/15/2025 10:17 AM CDT Other fatigue FOLIC ACID SERUM Routine 03/15/2025 10:1 7 AM CDT Other fatigue MAMMOGRAM GENERIC (SCAN ORDER) 06/10/2023 HEPATITIS C ANTIBODY W/RFX TO HCV RNA Routine 10/08/2022 8:25 AM SCIENTIFIC INFORMATICS LEADER Need for hepatitis C screening test COLONOSCOPY GENERIC (SCAN ORDER) 02/07/2022 from Last 3 Months or Most Recently Relevant to Health Maintenance Results * (ABNORMAL) LIPID PANEL (05/31/2025 9:47 AM CDT) Only the most recent of2 resultswithin the time period is included. CHOLESTEROL 169 <200 MG/DL 05/31/2025 4:09 PM CDT [facility] TRIGLYCERIDES 67 <150 MG/DL 05/31/2025 4:09 PM CDT [facility] HDL 53 >40 MG/DL 05/31/2025 4:09 PM CDT [facility] LDL-C 103(H) <100 MG/DL 05/31/2025 4:09 PM CDT [facility] VLDL CALCULATION 13 5 - 28 MG/DL 05/31/2025 4:09 PM CDT [facility] CHOL/HDL RATIO 3.2 0.0 - 4.0 05/31/2025 4:09 PM CDT [facility] LDL/HDL 1.9 0.41 - 2.13 05/31/2025 4:09 PM CDT [facility] NON HDL CHOLESTEROL 116 <140 MG/DL 05/31/2025 4:09 PM CDT [facility] 05/31/2025 9:47 AM CDT Geri Rios RAPIER INSERTION LOOM FIXER LABORATORY Final Res ult [facility] [address] [place] [address], [place] [phone] * TSH W/REFLEX (03/15/2025 10:17 AM CDT) TSH 2.855 0.358 - 3.740 uIU/ML 03/15/2025 4:36 PM CDT [facility] 03/15/2025 10:1 7 AM CDT Geri Rios RAPIER INSERTION LOOM FIXER LABORATORY Final Res ult [facility] [address] [place] [address], [place] [phone] * (ABNORMAL) HEMOGLOBIN, GLYCOSYLATED (03/15/2025 10:17 AM CDT) HGB A1C 6.1 4.5 - 6.2 % 03/15/2025 3:15 PM CDT [facility] ESTIMATED AVG GLUCOSE 128(H) 74 - 106 MG/DL 03/15/2025 3:15 PM CDT [facility] 03/15/2025 10:1 7 AM CDT Geri Rios RAPIER INSERTION LOOM FIXER LABORATORY Final Res ult [facility] [address] [place] [address], [place] [phone] * VITAMIN B-12 (03/15/2025 10:17 AM CDT) VITAMIN B12 S/P/B 706 193 - 986 PG/ML 03/15/2025 4:36 PM CDT [facility] 03/15/2025 10:1 7 AM CDT Geri Rios RAPIER INSERTION LOOM FIXER LABORATORY Final Res ult [facility] [address] [place] [address], [place] [phone] * (ABNORMAL) COMPREHENSIVE METABOLIC PANEL (03/15/2025 10:17 AM CDT) SODIUM S/P/B 140 136 - 145 MMOL/L 03/15/2025 4:36 PM CDT [facility] POTASSIUM S/P/B 4.2 3.5 - 5.1 MMOL/L 03/15/2025 4:36 PM CDT [facility] CHLORIDE S/P/B 105 98 - 107 MMOL/L 03/15/2025 4:36 PM T [facility] CO2 25.7 21 - 32 MMOL/L 03/15/2025 4:36 PM [facility] GLUCOSE 108(H) 70 - 99 MG/DL 03/15/2025 4:36 PM [facility] BUN 15 7 - 18 MG/DL 03/15/2025 4:36 PM T [facility] CREATININE S/P/B 0.46(L) 0.55 - 1.02 MG/DL 03/15/2025 4:36 PM [facility] CALCIUM S/P/B 9.4 8.4 - 10.5 MG/DL 03/15/2025 4:36 PM T [facility] BILIRUBIN TOTAL S/P/B 0.3 0.2 - 1.0 MG/DL 03/15/2025 4:36 PM T [facility] ALKALINE PHOSPHATASE S/P/B 83 55 - 142 U/L 03/15/2025 4:36 PM T [facility] AST 14(L) 15 - 37 U/L 03/15/2025 4:36 PM [facility] ALT 28 14 - 59 U/L 03/15/2025 4:36 PM T [facility] TOTAL PROTEIN S/P/B 7.0 6.4 - 8.2 G/DL 03/15/2025 4:36 PM T [facility] ALBUMIN S/P/B 4.1 3.4 - 5.0 G/DL 03/15/2025 4:36 PM T [facility] ANION GAP 9.3 5 - 15 MMOL/L 03/15/2025 4:36 PM T [facility] Comment:REFERENCE RANGE NOT ESTABLISHED OSMOLALITY (CALC) 291 MOSM/KG 025 4:36 PM T [facility] Comment:REFERENCE RANGE NOT ESTABLISHED GFR ESTIMATE >90 >90 ML/MIN/1. 73 M2 03/15/2025 4:36 PM CDT [facility] GFR NOTES GFR REFERENCE S: 03/15/2025 4:36 PM CDT [facility] Comment: THE ESTIMATED GFR IS CALCULATED USING THE 2020 CKD-EPI EQUATION. THE FOLLOWING CATEGORIES FOR GRADING RENAL FUNCTION ARE RECOMMENDED BY THE INTERNATIONAL SOCIETY OF NEPHROLOGY (KDIGO 2012 CLINICAL PRACTICE GUIDELINE). G1,NORMAL OR HIGH: >89 ml/min/1.73 m2 G2,MILDLY DECREASED: 60-89 ml/min/1.73 m2 G3A,MILDLY TO MODERATELY DECREASED: 45-59 ml/min/1.73 m2 G3B,MODERATELY TO SEVERELY DECREASED: 30-44 ml/min/1.73 m2 G4,SEVERELY DECREASED: 15-29 ml/min/1.73 m2 G5,KIDNEY FAILURE: <15 ml/min/1.73 m2 03/15/2025 10:1 7 AM CDT Geri Rios RAPIER INSERTION LOOM FIXER LABORATORY Final Res ult [address] [address], [place] [phone] * FOLIC ACID SERUM (03/15/2025 10:17 AM CDT) FOLATE >20.0 8.6 - 58.9 NG/ML 03/16/2025 10:44 AM CDT [facility] 03/15/2025 10:1 7 AM CDT Geri Rios RAPIER INSERTION LOOM FIXER LABORATORY Final Res ult [facility] [address] [place] [address], [place] [phone] * (ABNORMAL) CBC W/DIFF AUTOMATED (03/15/2025 10:17 AM CDT) [facility] WBC 7.14 4.00 - 10.80 x10'3/uL 03/15/2025 2:35 PM CDT [facility] RBC 4.33 4.10 - 5.40 x10'6/uL 03/15/2025 2:35 PM CDT [facility] HGB 13.9 12.0 - 16.0 G/DL 03/15/2025 2:35 PM CDT [facility] HCT 40.9 36.0 - 47.0 % 03/15/2025 2:35 PM CDT [facility] MCV 94.5 78.0 - 100.0 FL 03/15/2025 2:35 PM CDT [facility] MCH 32.1(H) 27.0 - 31.0 PG 03/15/2025 2:35 PM CDT [facility] MCHC 34.0 33.0 - 36.0 G/DL 03/15/2025 2:35 PM CDT [facility] RDW 13.0 11.5 - 14.5 % 03/15/2025 2:35 PM CDT [facility] PLT 319 150 - 350 x10'3/uL 03/15/2025 2:35 PM CDT [facility] MPV 10.1 7.4 - 10.4 FL 03/15/2025 2:35 PM CDT [facility] DIFFERENTIAL TYPE AUTOMATED DIFFERENTIAL 03/15/2025 2:35 PM CDT [facility] NEUTROPHILS % 63.8 % 03/15/2025 2:35 PM CDT [facility] LYMPHOCYTES % 21.6 % 03/15/2025 2:35 PM CDT [facility] MONOCYTES % 11.3 % 03/15/2025 2:35 PM CDT [facility] EOSINOPHILS % 2.5 % 03/15/2025 2:35 PM CDT [facility] BASOPHILS % 0.8 % 03/15/2025 2:35 PM CDT [facility] IMMATURE GRANS % 0.0 % 03/15/2025 2:35 PM CDT [facility] ABS. NEUTROPHILS 4.55 1.60 - 8.30 x10'3/uL 03/15/2025 2:35 PM CDT [facility] ABS. LYMPHOCYTES 1.54 0.80 - 4.70 x10'3/uL 03/15/2025 2:35 PM CDT [facility] ABS. MONOCYTES 0.81 0.00 - 1.50 x10'3/uL 03/15/2025 2:35 PM CDT [facility] ABS. EOSINOPHILS 0.18 0.00 - 0.40 x10'3/uL 03/15/2025 2:35 PM CDT [facility] ABS. BASOPHILS 0.06 0.00 - 0.20 x10'3/uL 03/15/2025 2:35 PM CDT [facility] ABS. IMMATURE GRANULOCYTES 0.00 0.00 - 0.03 x10'3/uL 03/15/2025 2:35 PM CDT [facility] 03/15/2025 10:1 7 AM CDT us Geri Rios RAPIER INSERTION LOOM FIXER LABORATORY Final Res ult [facility] [address] [place] [address], * VITAMIN D, 25 OH (03/15/2025 10:17 AM CDT) Pathologist [facility] VITAMIN D 25 HYDROXY TOTAL S/P/B 63.7 30 - 100 NG/ML 03/15/2025 4:36 PM CDT [facility] Comment: DEFICIENT <20 INSUFFICIENT 20-30 SUFFICIENT 30-100 03/15/2025 10:1 7 AM CDT Geridino Rios RAPIER INSERTION [employer] LABORATORY Final Res ult Performing Organization Address City/[facility] Co de Phone Number -[facility] [address] [place] [address], [place] [phone] * MAMMOGRAM GENERIC (06/10/2023) Anatomical Region Laterality Modality Other 06/10/2023 [facility] Scanned SCANNING Final Resu lt * HEPATITIS C ANTIBODY W/RFX TO HCV RNA ([facility] ONLY) (10/08/2022 8:25 AM SCIENTIFIC INFORMATICS LEADER) HEPATITIS C AB NON-REACTI VE NON-REACT ROSELIA [facility] SIGNAL TO CUTOFF 0.10 <[address] [facility] Comment: HCV antibody was non-reactive. There is no laboratory evidence of HCV infection. In most cases, no further action is required. However, if recent HCV exposure is suspected, a test for HCV RNA (test code 65392) is suggested. For additional information please refer to http://education.[employer]/faq/VDH86p8 (This link is being provided for informational/ educational purposes only.) 10/08/2022 8:25 AM SCIENTIFIC INFORMATICS LEADER 10/08/2022 8:26 AM SCIENTIFIC INFORMATICS LEADER Narrative [facility] - 10/13/2022 12:09 PM SCIENTIFIC INFORMATICS LEADER FASTING:YES FASTING: YES Geri Rios NP LABORATORY Final Res ult [facility] [address] [address] [facility] [place] [address] * COLONOSCOPY GENERIC (02/07/2022) 02/07/2022 Narrative 02/07/2022 Ordered by an unspecified provider. us Documents Scanned SCANNING Final Result from Last 3 Months or Most Recently Relevant to Health Maintenance Insurance [facility] MEDICARE PART A Care Teams Stratigrapher Relationship Specialty Start Date End Date Geri Rios NP [address] [place] [address] PCP - General NURSE PRACTITIONER 06/28/22
--- OUTSIDE RECORDS SUMMARY | 2025-06-10 13:10 | XMS_ITS | Clinical Summary ---
Author Organization [facility] Address [facility] [place] [address] Care Team Providers Care Recreation Program Coordinator Name Role Phone Geri Rios MD Primary Care Provider [phone] Yannick Mckeon MD Unavailable [phone] Allergies Active Allergy Reactions Criticality Noted Date Comments Sherry-Elton(Acetamin-C a Carb) Other (See comments) Low 11/06/2021 Tingling in lips and tongue Brimonidine Other (See comments) Low 01/25/2025 She got a weird taste in her mouth and then her lips and tongue started tingling. Penicillins Other (See comments) Low 06/17/2020 Numbness in mouth Lips get tingly and numb Tingling in lips Medications aspirin 81 mg enteric coated tabletIndicatio ns:prevention of thrombosis Take 1 tablet (81 mg total) by mouth every morning Active cholecalciferol (VITAMIN D-3) 400 unit capsuleIndicati ons:supplement Take 1 tablet/capsule (400 Units total) by mouth every evening Active hydrALAZINE (APRESOLINE) 50 mg tabletIndicatio ns:hypertension Take 1 tablet (50 mg total) by mouth 2 (two) times a day 0 Active multivitamin tabletIndicatio ns:Vitamin Deficiency Prevention Take 1 tablet by mouth every morning Active venlafaxine XR (EFFEXOR-XR) 37.5 mg 24 hr capsuleIndicati ons:major depressive disorder Take 1 capsule (37.5 mg total) by mouth every evening 0 Active fexofenadine (ZOË) 180 mg tabletIndicatio ns:Seasonal Allergic Rhinitis Take 1 tablet (180 mg total) by mouth every evening Active azelastine (ASTELIN) 137 mcg (0.1 %) nasal spray USE 2 SPRAYS INTO EACH NOSTRIL TWICE A DAY 30 mL 3 2 Active Additional Information Patient taking differently: 2 spray each nostril Every morning, Indications: Seasonal Allergic Rhinitis, Informant: Self, Reported on 05/20/2025 amLODIPine (NORVASC) 10 mg tabletIndicatio ns:hypertension Take 1 tablet (10 mg total) by mouth every morning 4 Active valsartan (DIOVAN) 160 mg tabletIndicatio ns:hypertension Take 1 tablet (160 mg total) by mouth 2 (two) times a day Active BD Insulin Syringe Ultra-Fine 1 mL 31 gauge x 5/16 syringe USE DIRECTED SUBCUTANEOUS 8 TIMES A WEEK FOR 90 DAYS 4 Active docusate sodium (COLACE) 100 mg capsuleIndicati ons:constipatio n Take 2 capsules (200 mg total) by mouth 2 (two) times a day 1 Active cyclobenzaprine (FLEXERIL) 5 mg tabletIndicatio ns:Muscle Spasm Take 1 tablet (5 mg total) by mouth as needed for muscle spasms 3 Active cyanocobalamin (Vitamin B-12) 500 mcg tablet Take 1 tablet (500 mcg total) by mouth daily Active ascorbic acid (VITAMIN C ORAL)Indication s:supplement Take 1 tablet by mouth every evening Active cariprazine (Vraylar) 1.5 mg capsule capsuleIndicati ons:Depression Treatment Adjunct Take 1 capsule (1.5 mg total) by mouth nightly Active rosuvastatin (CRESTOR) 10 mg tabletIndicatio ns:hyperlipidem ia Take 1 tablet (10 mg total) by mouth nightly Active UNABLE TO FINDIndications :dry eye Administer 1 each into both eyes 2 (two) times a day Med Name: Miebo Active moxifloxacin (VIGAMOX) 0.5 % ophthalmic solution Administer 1 drop into the right eye 4 (four) times a day Use every 2 hours while awake the day of surgery then 4X/day 5 Active prednisoLONE acetate (PRED FORTE) 1 % ophthalmic suspension Administer 1 drop into the right eye 4 (four) times a day 4 times daily (when you wake up, lunch, dinner, bedtime). 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 Will do MRx after pred taper Stop moxi She is post myopic lasik so will have bag and and sulcus options available. She is bothered by floaters OS so wants to do the same procedure. RBA discussed and pt wants to proceed with IOL exchange/PPV OS plano target. Assessment & Plan (05/21/2025 9:23 AM CDT): 1 days (05/20/2025) status post (combo Apte / Sheybani) - Vitrectomy - 25 Gauge - Right and (combo Sheybani / Apte) -exchange Intraocular Lens. - Right. Doing well. Shield operated eye, Moxi 4x/day, and Predforte 4x/day Return to clinic in one week. Signs and symptoms of retinal detachment, tears and endophthalmitis, elevated pressure reviewed with patient. Post Op Position:None. Altitude precautions are not needed. No strenuous activity. Assessment & Plan (01/25/2025 10:25 AM CAPTAIN/CHECK AIRMAN): S/p MFIOL OU - had symptoms even before PCO so unlikely to improve with yag cap. Discussed lasik can lead to MRx. Her main symptoms are glare that occurred immediately after surgery. RBA discussed including needing secondary surgeries and MRx. PT agrees to proceed with IOL exchange possible vit OD. Then if she feels that it improved can proceed with OS. May do yag cap OD after exchange. Unsure if headaches will go away but hopefully the glare will improve. She also is VERY bothered by floaters and discussed that PPV will be needed. Plan on MX60 E in bag and CT isha for sulcus. IOLM terrie ? Myopic lasik Will try to get iol power and model PCO (posterior capsular opacification), santosh l 01/07/2025 Hx of LASIK 01/07/2025 Chronic pansinusitis 06/17/2020 Ear bleeding, left 06/17/2020 Malignant neoplasm of upper- outer quadrant of left female breast 04/15/2017 Encounters Date Type Department Care Team Description 06/02/2025 Telephone [facility] Ophthalmology [address], [address] [place] [address] Rosemarie Harris COA 11/18 surgery 06/01/2025 11:30 AM CDT Office Visit [facility] Ophthalmology [address], [address] [place] [address] Ester Finnegan MD Positive dysphotopsia (Primary Dx); Hx of LASIK 05/26/2025 Telephone [facility] Ophthalmology [address] [place] [address] Rodney Mcnamara MD PhD Patient Education 05/21/2025 9:30 AM CDT Office Visit [facility] Ophthalmology [address] [place] [address] Gary Florian MD Positive dysphotopsia (Primary Dx) 05/20/2025 7:30 AM CDT - 05/20/2025 9:00 AM CDT Surgery [facility] [address] [place] [address] Rodney Mcnamara MD PhD (COMBO LUAN / ALEXANDREA) - VITRECTOMY - 25 GAUGE 05/20/2025 7:23 AM CDT Anesthesia Event [facility] Operating [facility]) [address] [place] [address] Miguel Castañeda MD Hearn, Alexandra Marie, NP 05/20/2025 5:40 AM CDT - 05/20/2025 9:02 AM CDT Hospital Encounter [facility] Operating [facility] [address] [place] [address] Rodney Mcnamara MD PhD Positive dysphotopsia [H59.099, H53.8] (Primary Dx); Mechanical complication due to intraocular lens implant, subsequent encounter [T85.29XD]; Vitreous prolapse of both eyes Discharge Disposition: Discharge to home or self care 05/19/2025 Telephone [facility] Ophthalmology [address] [facility] [address] 6th [place] [address] Julia Pendleton COA from Last 3 Months Surgical History Surgery Date Site/Laterality Comments HAND SURGERY 12/02/2010 - 12/01/2011 HYSTERECTOMY 12/02/1989 - 12/01/1990 RHINOPLASTY 12/02/1991 - 12/01/1992 BUNIONECTOMY 12/02/1996 - 12/01/1997 CATARACT EXTRACTION W/ INTRAOCULAR LENS IMPLANT 05/11/2024 Right CE/IOL/MF (Symfony) CATARACT EXTRACTION W/ INTRAOCULAR LENS IMPLANT 06/01/2024 Left CE/IOL/MF (Symfony) EYE SURGERY 10/02/2024 - 10/31/2024 Bilateral Lasik BLADDER SURGERY 12/02/2020 - 12/01/2021 BREAST LUMPECTOMY 12/02/2021 - 12/01/2022 Left COLONOSCOPY x2 INTRAOCULAR LENS EXCHANGE 05/20/2025 Eye/Right Procedure: (COMBO HALINAYBYUVAL / APTE) -EXCHANGE INTRAOCULAR LENS.; Surgeon: Ester Finnegan MD; Location: [facility] OR POD 4; Service: Ophthalmology; Laterality: Right; Medical devices from this surgery are in the Medical Devices section. Medical History Medical History Date Comments Allergic rhinitis Cancer (HCC) Left Breast Hypertension Sinusitis Tinnitus Family History Medical History Relation Name Comments Cancer Brother No Known Problems Father Diabetes Mother Hypertension Mother Cancer Sister Anesthesia problems Neg Hx Malig Hypertension Neg Hx Malig Hyperthermia Neg Hx Pseudochol deficiency Neg Hx Relation Name Status Comments Brother Father Mother Sister Social History Tobacco Use Types Packs/Day Years Used Date Smoking Tobacco: Former Cigarettes 0.5 41 1 976 - 2017 Smokeless Tobacco: Never Tobacco Cessation:Counseling Given: Not Answered Alcohol Use Standard Drinks/Week Comments Yes 0 (1 standard drink = 0.6 oz pur e alcohol) AUDIT-C Answer Date Recorded Q1: How often do you have a drink containing alc ohol? Monthly or less 05/05/2025 Q2: How many drinks containi ng alcohol do you have on a typical day when you are drinking? 1 or 2 05/05/2025 Q3: How often do you have si x or more drinks on one occasion? Never 05/05/2025 Personal Safety Answer Date Recorded Have you ever been in or are you currently in a harmful physical or emotional relationship or is someone making you feel afraid or unsafe? Denies 05/20/2025 Comments Unknown Sex and Gender Information Value Date Recorded Sex Assigned at Not on file Legal Sex Female 3:08 AM CAPTAIN/CHECK AIRMAN Gender Identity Not on file Sexual Orientation Not on file Obstetrics History Last Filed Vital Signs Vital Sign Reading Time Taken Comments Blood Pressure 152/100 05/20/2025 8:20 AM CDT Pulse 69 05/20/2025 8:20 AM CDT Temperature 36.2 C (97.2 F) 05/20/2025 8:10 AM CDT Respiratory Rate 20 05/20/2025 8:20 AM CDT Oxygen Saturation 95% 05/20/2025 8:20 AM CDT Inhaled Oxygen Concentration - - Weight 71.7 kg (158 lb) 05/20/2025 6:24 AM CDT Height 167.6 cm (5' 6) 05/05/2025 11:20 AM CDT Body Mass Index 25.5 05/05/2025 11:20 AM CDT Plan of Treatment Health Maintenance Due Date Last Done Comments Colon Cancer Screening-Colonoscopy 1957 Depression Screening 1957 Hepatitis C Screening 1957 Hepatitis B Screening 1975 Lung Cancer Screening 2007 Pneumococcal vaccine 65+ (1 of 1 - PCV) 2007 Zoster Vaccine (1 of 2) 2007 Breast Cancer Screening-Mammogram 02/15/2021 020, 02/12/2019 Well Visit 65+ 2022 Covid-19 Vaccine ( season) 2024 09/05/2021, 03/06/2021, 02/12/2021 Osteoporosis Screening-Bone Density Scan 06/10/2025 06/10/2023, 04/29/2018 Influenza Vaccine (#1) 2025 09/05/2021, 2019 Fall Risk Assessment 05/20/2026 05/20/2025 DTaP/Tdap/Td Vaccine (2 - Td or Tdap) 06/28/2032 Medical Devices Implanted Type Area Water Softener Installer Device Identifier Shelf Expiration Date Model / Serial / Lot [employer] Lens Iol Monofocal Anterior Biconvex Optic Single Piece Tecnis Simplicity 6.0x13.0 +24.0d Hydrophobic Acrylic [id number] - [id number] - [id number] Implanted:Qty: 1 on 05/20/2025 by Rodney Mcnamara MD PhD at [facility] Lens Right: Eye [employer] [id number] 04/12/2028 [id number] / [id number] / 0 Procedures Procedure Name Priority Date/Time Associated Diagnosis Comments CO EXCHANGE INTRAOCULAR LENS 05/20/2025 7:26 AM CDT Positive dysphotopsia Vitreous prolapse of both eyes VITRECTOMY - 25 GAUGE 05/20/2025 7:26 AM CDT Positive dysphotopsia Vitreous prolapse of both eyes from Last [address] [place] [address] [facility] ACCESS [facility] FEDERAL [facility] FEDERAL MEDICARE Care Teams Recreation Program Coordinator Relationship Specialty Start Date End Date Geri Rios MD PCP - General Nurse Practitioner 12/17/24 Yannick Mckeon MD Family Medicine 12/17/24
--- OUTSIDE RECORDS SUMMARY | 2025-06-10 13:10 | XMS_ITS | Referral Summary ---
Author Organization [facility] Address [address] [place] [address] Care Team Providers Care Supervisor Fireworks Assembly Name Role Phone Geri Rios MD Primary Care Provider [phone] Yannick Mckeon MD Unavailable [phone] Encounters Date Type Department Care Team Description 06/02/2025 Telephone [facility] Ophthalmology [address] [place] [address] Rosemarie Harris COA 11/18 surgery 06/01/2025 11:30 AM CDT Office Visit [facility] Ophthalmology [address], [address] [place] [address] Ester Finnegan MD Positive dysphotopsia (Primary Dx); Hx of LASIK 05/26/2025 Telephone [facility] Ophthalmology [address] [place] [address] Rodney Mcnamara MD PhD Patient Education 05/21/2025 9:30 AM CDT Office Visit [facility] Ophthalmology [address] [place] [address] Gary Florian MD Positive dysphotopsia (Primary Dx) 05/20/2025 7:30 AM CDT - 05/20/2025 9:00 AM CDT Surgery [facility] Operating [facility] [address] [place] [address] Rodney Mcnamara MD PhD (COMBO APTE / HALINAYBANI) - VITRECTOMY - 25 GAUGE 05/20/2025 7:23 AM CDT Anesthesia Event [facility] Operating [facility] [address] [place] [address] Miguel Castañeda MD Hearn, Alexandra Marie, NP 05/20/2025 5:40 AM CDT - 05/20/2025 9:02 AM CDT Hospital Encounter [facility] Operating [facility] [address] [place] [address] Rodney Mcnamara MD PhD Positive dysphotopsia [H59.099, H53.8] (Primary Dx); Mechanical complication due to intraocular lens implant, subsequent encounter [T85.29XD]; Vitreous prolapse of both eyes Discharge Disposition: Discharge to home or self care 05/19/2025 Telephone [facility] Ophthalmology [address] [facility] [address]th [place] [address] Julia Pendleton COA from Last 3 Months Allergies Active Allergy Reactions Criticality Noted Date Comments Sherry-Owen(Acetamin-C a Carb) Other (See comments) Low 11/06/2021 [...] activity. Assessment & Plan (01/25/2025 10:25 AM SECURITIES CLERK): S/p MFIOL OU - had symptoms even [...] power and model PCO (posterior capsular opacification), bilatera l 01/07/2025 Hx of LASIK 01/07/2025 Chronic pansinusitis 06/17/2020 Ear bleeding, left 06/17/2020 Malignant neoplasm of upper- outer quadrant of left female breast 04/15/2017 Social History Tobacco Use Types Packs/Day Years Used Date Smoking Tobacco: Former Cigarettes 0.5 41 1 976 - 2016 Smokeless Tobacco: Never Tobacco Cessation:Counseling Given: Not [...] on file Legal Sex Female 3:08 AM SECURITIES CLERK Gender Identity Not on file Sexual Orientation [...] 05/05/2025 11:20 AM CDT Plan of Treatment Not on file Medical Devices Implanted Type Area Steam Conditioner Operator Device Identifier Shelf Expiration Date Model / Serial / Lot [employer] Lens Iol Monofocal Anterior Biconvex Optic Single Piece Tecnis Simplicity 6.0x13.0 +24.0d Hydrophobic Acrylic [id number] - [id number] - [id number] Implanted:Qty: 1 on 05/20/2025 by Rodney Mcnamara MD PhD at [facility] Lens Right: Eye [place] [employer] [id number] 04/12/2028 [id number] / 0 Procedures Procedure Name Priority Date/Time Associated Diagnosis Comments ID EXCHANGE INTRAOCULAR LENS 05/20/2025 7:26 AM CDT Positive dysphotopsia Vitreous prolapse of both eyes VITRECTOMY - 25 GAUGE 05/20/2025 7:26 AM CDT Positive dysphotopsia Vitreous prolapse of both eyes from Last 3 Months Insurance [facility] ACCESS [facility] [place] [address] [facility] FEDERAL MEDICARE Care Teams Supervisor Fireworks Assembly Relationship Specialty Start Date End Date Geri Rios MD PCP - General Nurse Practitioner 12/17/24 Yannick Mckeon MD Family Medicine 12/17/24
--- OUTSIDE RECORDS SUMMARY | 2025-06-10 13:10 | XMS_ITS | Encounter Summary ---
Author Organization [facility] Address [address] [place] [address] Care Team Providers Care Car Retarder Operator Name Role Phone Yannick Mckeon MD Primary Care Provider [phone]- [phone] Encounter Details Date Type Department Care Team (Late st Contact Info) Description 05/07/2017 Chart Note [facility] Radiation Therapy [address] [place] [address] [place] [address] [place] [address] Social History Tobacco Use Types Packs/Day Years Used Date Smoking Tobacco: Former Cigarettes 0.5 35 0 02/28/1982 - 02/28/2017 Alcohol Use Standard Drinks/Week Comments Yes 0 [...] Description 06/21/2025 10:15 AM CDT Office Visit [facility] Oncology and Hematology - [place] [address] [facility] [address] [place] [address] Manpreet Hand MD [address] [facility] [address] [facility] [address] [place] [address] documented as of this encounter Visit Diagnoses Not on filedocumented in this encounter Care Teams Car Retarder Operator Relationship Specialty Start Date End Date Yannick Mckeon MD [address] [place] [address] [address] [place] [address] PCP - General Family Practice 04/30/19 documented as of this encounter
--- OUTSIDE RECORDS SUMMARY | 2025-06-10 13:10 | XMS_ITS | Clinical Summary ---
Author Organization [facility] Address [address] [facility] [place] [address] Care Team Providers Care Embossograph Operator Name Role Phone Unavailable Primary Care Provider Unavailabl e Source Comments [facility],non-owned Affiliates and Associated Physician Practices is amultiple site organization consisting of ambulatory clinics and hospital sitesin [place], [place], [place] and [place]. This disclosure is being madepursuant to the Care Everywhere program and may not contain all information available regarding this patient. Last updated 18.[facility] Encounters Date Type Department Care Team Description 03/19/2025 Lab Requisition [facility] - DermPath Lab [address] [facility], [place] [address] Eder Simental MD from Last 3 Months Social History Tobacco Use Types Packs/Day Years Used Date Smoking Tobacco: Never Assessed Comments Unknown Sex and Gender Information Value Date Recorded Sex Assigned at Not on file Legal Sex Female 12:31 PM ELIGIBILITY ANALYST Gender Identity Not on file Sexual Orientation Not on file Plan of Treatment Health Maintenance Due Date Last Done Comments BONE DENSITY TESTING 1957 COLOGUARD (AGES 45-75) - COL ON CA SCREENING 1957 COLON MONITORING 1957 COLONOSCOPY - COLON CA SCREENING 1957 CT COLONOGRAPHY - COLON CA SCREENING 1957 Colorectal Cancer Screening 1957 FIT - COLON CA SCREENING 1957 FLEX SIG - COLON CA SCREENING 1957 LIPID TESTING 1957 MAMMOGRAM 1957 HEPATITIS C SCREENING 04/09/1975 DTAP/TDAP/TD VACCINES (1 - Tdap) 1976 PNEUMOCOCCAL VACCINE 50+ (1 of 1 - PCV) 2007 ZOSTER VACCINE (1 of 2) 2007 COVID-19 VACCINE (2023-2 5 season) 2024 DEPRESSION SCREENING 12/02/2024 INFLUENZA VACCINE (#1) 2025 Respiratory Syncytial Virus (RSV) Vaccine Pt: or over 60 yrs (1 - 1-dose 75+ series) 2032 HEPATITIS B VACCINE Aged Out No longe r eligible based on patient's age to complete this topic HIB VACCINE Aged Out No longer eligi ble based on patient's age to complete this topic HPV VACCINE Aged Out No longer eligi ble based on patient's age to complete this topic MENINGOCOCCAL (Group B) VACC INE SHARED DECISION-MAKING Aged Out No longer eligibl e based on patient's age to complete this topic MENINGOCOCCAL GROUPS A/C/Y/W VACCINE Aged Out No longer eligible b ased on patient's age to complete this topic Procedures Procedure Name Priority Date/Time Associated Diagnosis Comments DERMATOPATHOLOGY Routine 03/18/2025 12:0 0 AM CDT from Last 3 Months Results * DERMATOPATHOLOGY (03/18/2025 12:00 AM CDT) Case Report Dermatopathology Report Case: [id number] Authorizing Provider: Eder Simental MD Collected: 03/18/2025 12:00 AM Ordering Location: [facility] - Received: 03/19/2025 07:42 AM [...] desiccation biopsy measuring 6x4x2 mm. Jar 0. 04/22/202 5 9:45 AM CDT DERMATOPATHOLOGY LABORATORY Microscopic Description [...] characteristic determined by the Dermatopathology Laboratory at [facility], directed by Dr. Cheikh Vuong. These tests need not be, and therefore are not, approved by the [place] Food and Drug Administration. The tests are used for clinical purposes. Billing Codes Specimen Charges Stain Charges 69031 1 9:45 AM CDT DERMATOPATHOLOGY LABORATORY Embedded Images 9:45 AM CDT DERMATOPATHOLOGY LABORATORY Pathology/Cytolog y TISSUE SPECIMEN FROM SKIN / Unknown 03/18/2025 03/19/2025 7:42 AM CDT Eder Simental MD LAB - PATHOLOGY/CYTOLOGY ORDERAB LES Final Result DERMATOPATHOLOGY LABORATORY [facility] - Department of Dermatology [address], [address] [phone] from Last 3 Months Insurance [facility] ANTHEM ANTHEM ANTHEM
--- OUTSIDE RECORDS SUMMARY | 2025-06-10 13:10 | XMS_ITS | Encounter Summary ---
Author Organization [facility] Address [address] [place] [address] Care Team Providers Care Home Health Billing Specialist Name Role Phone Unavailable Primary Care Provider Unavailabl e Encounter Details Date Type Department Care Team (Late st Contact Info) Description 06/09/2020 Lab Requisition [facility] DermPath Lab [address] [place] [address] Eder Simental MD [address] [place] [address] Social History Tobacco Use Types Packs/Day Years Used Date Smoking Tobacco: Never Assessed Comments Unknown Sex and Gender Information Value Date Recorded Sex Assigned at Not on file Legal Sex 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 Gender Identity Not on file Sexual Orientation Not on file documented as of this encounter Plan of Treatment Not on file documented as of this encounter Procedures Procedure Name Priority Date/Time Associated Diagnosis Comments DERMATOPATHOLOGY Routine 06/07/2020 12:0 0 AM CDT documented in this encounter Results * DERMATOPATHOLOGY (06/07/2020 12:00 AM CDT) Case Report Dermatopathology Report Case: [id number] Authorizing Provider: Eder Simental MD Collected: 06/07/2020 12:00 AM Ordering Location: [facility] DermPath Lab Received: 06/09/2020 06:23 AM Pathologist: Елена Montano MD Specimen: Skin, left ant thigh 0 9:09 AM CDT DERMATOPATHOLOGY LABORATORY Final Diagnosis Specimen A. 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 See prior biopsy [id number] 0 9:09 AM CDT DERMATOPATHOLOGY LABORATORY Gross Description Specimen A: Received is one formalin filled container labeled with the patient's name and designated left ant thigh. The specimen consists of a 5x5x6 mm piece of skin. The margin is inked green. The specimen is bisected lengthwise and submitted in 1 cassette. Jar 0. 0 9:09 AM CDT DERMATOPATHOLOGY LABORATORY Microscopic Description Specimen A. SKIN, left ant thigh: There is mild epidermal acanthosis. There are fibroblasts and collagen bundles oriented parallel to the skin surface with elongated blood vessels, some of which are oriented perpendicular to the skin surface. Underlying these changes, there are fibrohistiocytic cells organized in a more haphazard array among coarse collagen bundles. These changes are present at the margin of the specimen. COMMENT: The overall histologic changes are favored to represent dermal scar, possibly occurring in association with underlying dermatofibroma. The differential diagnosis includes a hypertrophic dermal scar. Clinical correlation is recommended. The prior biopsy ([id number]) has been reviewed. 0 9:09 AM CDT DERMATOPATHOLOGY LABORATORY Disclaimer An external and internal positive and negative controls are appropriate for the histochemical, immunohistochemical and immunofluorescence stain(s) in this case (if any), except where stated explicitly. The performance characteristics of the stain(s) cited in this report were developed and its performance characteristic determined by the Dermatopathology Laboratory at [facility], directed by Dr. Cheikh Vuong. These tests need not be, and therefore are not, approved by the [place] Food and Drug Administration. The tests are used for clinical purposes. Billing Codes Specimen Charges Stain Charges 65518 1 0 9:09 AM CDT DERMATOPATHOLOGY LABORATORY Embedded Images 0 9:09 AM CDT DERMATOPATHOLOGY LABORATORY Pathology/Cytolog y TISSUE SPECIMEN FROM SKIN / Unknown 06/07/2020 06/09/2020 6:23 AM CDT Eder Simental MD LAB - PATHOLOGY/CYTOLOGY ORDERAB LES Final Result DERMATOPATHOLOGY LABORATORY [facility] - Department of Dermatology [facility]/Prashant [address] [place] [address] documented in this encounter Visit Diagnoses Not on filedocumented in this encounter
[2025-06-10 13:20] LABS: Hematocrit 39.8 % (37.0-47.0); Hemoglobin 13.7 g/dL (12.0-15.0); Immature Granulocyte Percent A 0.3 % (0-0.5); Lymphocytes Absolute Auto 2.23 K/mm3 (0.9-3.2); Mean Corpuscular HGB Conc 34.4 g/dl (32-36); Mean Corpuscular Hemoglobin 32.8 pg (26-34); Mean Corpuscular Volume 95.2 fl (80-100); Nucleated Red Blood Cells Absolute Auto 0.000 K/mm3 (0.0-0.012); Nucleated Red Blood Cells Perc 0.0 % (0.0-0.2); Platelet Count Result 292 k/mm3 (150-375); Red Blood Count 4.18 M/mm3 (4.2-5.4); White Blood Count 8.8 K/mm3 (4.5-10.0)
[2025-06-10 15:21] LABS: Alanine Aminotransferase 30 U/L (6-35); Albumin Level 4.5 g/dL (3.5-5.1); Alkaline Phosphatase 62 U/L (38-126); Anion Gap 7 mmol/L (4-12); Aspartate Amino Transferase 83 U/L (14-36); Bilirubin,Total 0.3 mg/dL (0.2-1.3); Blood Urea Nitrogen 15 mg/dL (7-17); Calcium 9.4 mg/dL (8.4-10.2); Carbon Dioxide 27 mmol/L (22-30); Chloride 103 mmol/L (98-107); Estimated Glomerular Filt Rate > 60; Glucose 90 mg/dL (65-110); Potassium 4.0 mmol/L (3.4-5.0); Sodium 137 mmol/L (137-145); Total Protein 7.2 g/dL (6.3-8.2)
== END 2025-06-10 13:07 | disposition home or self-care (01) ==
LOC: ANHLAB 13:07
PROVIDERS: PCP Nurse Practitioner; Visit Provider Internal Medicine Hematology & Oncology
DX: C50.412 Malignant neoplasm of upper-outer quadrant of left female breast (principal); Z17.0 Estrogen receptor positive status [ER+]
CPT/HCPCS: 36415; 80053; 85025; 86300

== ENCOUNTER 2025-06-14 14:07 | Outpatient (CLI) | payer BC, SELFPAY ==
--- NOTE | ~2025-06-14 | MM_ITS ---
EXAMINATION: MM screening osbaldo BI w princess HISTORY: Screening TECHNIQUE: Craniocaudal and mediolateral oblique 3-D tomosynthesis images were obtained and synthetic 2-D images were generated. CAD analysis was submitted and interpreted. COMPARISON: Comparison to multiple prior studies sequentially, with oldest reviewed study dated 04/28. BREAST PARENCHYMAL COMPOSITION: Dense: The breasts are heterogeneously dense, which may obscure small masses FINDINGS: Stable lumpectomy changes in the upper outer quadrant of the left breast. There is no evide nce of suspicious mass, calcification, or architectural distortion to suggest malignancy in either br east. There has been no suspicious interval change. IMPRESSION: 1. No mammographic evidence of malignancy. 2. Recommend routine screening mammography in one year. BI-RADS Category 2: Benign finding(s). Reviewed, dictated and finalized at location B.
--- OUTSIDE RECORDS SUMMARY | 2025-06-14 14:21 | XMS_ITS | Clinical Summary ---
Author Organization [facility] Address [address] [facility] [place] [address] Care Team Providers Care Framing Mill Operator Name Role Phone Unavailable Primary Care Provider Unavailabl e Source Comments [facility],non-owned Affiliates and Associated Physician Practices is amultiple site organization consisting of ambulatory clinics and hospital sitesin [place], [place], [place] and [place]. This disclosure is being madepursuant to the Care Everywhere program and may not contain all information available regarding this patient. Last updated 18.[facility] Encounters Date Type Department Care Team Description 03/19/[address] [facility] - DermPath Lab [address] [facility], [place] [address] Eder Simental MD from Last 3 Months Social History Tobacco Use Types Packs/Day Years Used Date Smoking Tobacco: Never Assessed Comments Unknown Sex and Gender Information Value Date Recorded Sex Assigned at Not on file Legal Sex Female 12:31 PM PRIMARY CARE COORDINATOR Gender Identity Not on file Sexual Orientation [...] AM CDT) Case Report Dermatopathology Report Case: [id number] Authorizing Provider: Eder Simental MD Collected: 03/18/2025 12:00 AM Ordering Location: [facility] - Received: 03/19/2025 07:42 AM [...] characteristic determined by the Dermatopathology Laboratory at [facility], directed by Dr. Cheikh Vuong. These tests need not be, and therefore are not, approved by the [place] Food and Drug Administration. The tests are used for clinical purposes. Billing Codes Specimen Charges Stain Charges 87449 1 9:45 AM CDT DERMATOPATHOLOGY LABORATORY Embedded Images 9:45 AM CDT DERMATOPATHOLOGY LABORATORY Pathology/Cytolog y TISSUE SPECIMEN FROM SKIN / Unknown 03/18/2025 03/19/2025 7:42 AM CDT Eder Simental MD LAB - PATHOLOGY/CYTOLOGY ORDERAB LES Final Result DERMATOPATHOLOGY LABORATORY [facility] - Department of Dermatology [address] [phone] from Last 3 Months Insurance [facility] ANTHEM ANTHEM ANTHEM
--- OUTSIDE RECORDS SUMMARY | 2025-06-14 14:21 | XMS_ITS | Clinical Summary ---
Author Organization [facility] Address [facility] [place] [address] Care Team Providers Care Flat Locker Name Role Phone Geri Rios MD Primary Care Provider [phone]- [phone] Yannick Mckeon MD Unavailable [phone] Allergies Active Allergy Reactions Criticality Noted Date Comments [place](Acetamin-C a Carb) Other (See comments) Low 11/06/2021 [...] activity. Assessment & Plan (01/25/2025 10:25 AM AUTOMATIC SILK SCREEN PRINTER): S/p MFIOL OU - had symptoms even [...] Type Department Care Team Description 06/02/2025 Telephone [facility] Ophthalmology [address] [facility] [address], [address] [place] [address] Rosemarie Harris COA 11/18 surgery 06/01/2025 11:30 AM CDT Office Visit [facility] Ophthalmology [address] [facility] [address], [address] [place] [address] Ester Finnegan MD Positive dysphotopsia (Primary Dx); Hx of LASIK 05/26/2025 Telephone [facility] Ophthalmology [address] [place] [address] Rodney Mcnamara MD PhD Patient Education 05/21/2025 9:30 AM CDT Office Visit [facility] Ophthalmology [address] [facility] [address]nd [address] [place] [address] Gary Florian MD Positive dysphotopsia (Primary Dx) 05/20/2025 7:30 AM CDT - 05/20/2025 9:00 AM CDT Surgery [facility] Operating Room [facility] [address] [place] [address] Rodney Mcnamara MD PhD (COMBO LUAN / ALEXANDREA) - VITRECTOMY - 25 GAUGE 05/20/2025 7:23 AM CDT Anesthesia Event [facility] Operating Room [facility] [address] [place] [address] Miguel Castañeda MD Hearn, Alexandra Marie, NP 05/20/2025 5:40 AM CDT - 05/20/2025 9:02 AM CDT Hospital Encounter 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] (Primary Dx); Mechanical complication due to intraocular lens implant, subsequent encounter [T85.29XD]; Vitreous prolapse of both eyes Discharge Disposition: Discharge to home or self care 05/19/2025 Telephone [facility] Ophthalmology [address] [facility] 6th [place] [address] Juila Pendleton COA from Last 3 Months Surgical [...] INTRAOCULAR LENS.; Surgeon: Ester Finnegan MD; Location: [facility] OR POD 4; Service: Ophthalmology; Laterality: Right; [...] on file Legal Sex Female 3:08 AM AUTOMATIC SILK SCREEN PRINTER Gender Identity Not on file Sexual Orientation [...] Tdap) 06/28/2032 Medical Devices Implanted Type Area Energy Efficiency Finance Manager Device Identifier Shelf Expiration Date Model / Serial / Lot [place] [employer] Lens Iol Monofocal Anterior Biconvex Optic Single Piece Tecnis Simplicity 6.0x13.0 +24.0d Hydrophobic Acrylic [id number] - [id number] - [id number] Implanted:Qty: 1 on 05/20/2025 by Rodney Mcnamara MD PhD at [facility] Lens Right: Eye [employer] [id number] 04/12/2028 [id number] / [id number] / 0 Procedures Procedure Name Priority Date/Time Associated Diagnosis Comments VT EXCHANGE INTRAOCULAR LENS 05/20/2025 7:26 AM CDT Positive dysphotopsia Vitreous prolapse of both eyes VITRECTOMY - 25 GAUGE 05/20/2025 7:26 AM CDT Positive dysphotopsia Vitreous prolapse of both eyes from Last [address] [place] [address] [facility] ACCESS [facility] FEDERAL [facility] FEDERAL MEDICARE Care Teams Flat Locker Relationship Specialty Start Date End Date Geri Rios MD PCP - General Nurse Practitioner 12/17/24 Yannick Mckeon MD Family Medicine 12/17/24
--- OUTSIDE RECORDS SUMMARY | 2025-06-14 14:21 | XMS_ITS | Encounter Summary ---
Author Organization [facility] Address [address] [place] [address] Care Team Providers Care Digital Imager Name Role Phone Unavailable Primary Care Provider Unavailabl e Encounter Details Date Type Department Care Team (Late st Contact Info) Description 03/19/2025 Lab Requisition [facility] - DermPath Lab [address] [place] [address] Eder Simental MD [address] [place] [address] Social History Tobacco Use Types Packs/Day Years Used Date Smoking Tobacco: Never Assessed Comments Unknown Sex and Gender Information Value Date Recorded Sex Assigned at Not on file Legal Sex Female 12:31 PM [employer] Gender Identity Not on file Sexual Orientation Not on file documented as of this encounter Plan of Treatment Not on file documented as of this encounter Procedures Procedure Name Priority Date/Time Associated Diagnosis Comments DERMATOPATHOLOGY Routine 03/18/2025 12:0 0 AM CDT documented in this encounter Results * DERMATOPATHOLOGY (03/18/2025 12:00 AM CDT) Case Report Dermatopathology Report Case: [id number] Authorizing Provider: Eder Simental MD Collected: 03/18/2025 12:00 AM Ordering Location: [facility] - Received: 03/19/2025 07:42 [...] determined by the Dermatopathology Laboratory at [facility], directed by Dr. Cheikh Vuong. These tests need not be, and therefore are not, approved by the [place] Food and Drug Administration. The tests are used for clinical purposes. Billing Codes Specimen Charges Stain Charges 23005 1 9:45 AM CDT DERMATOPATHOLOGY LABORATORY Embedded Images 9:45 AM CDT DERMATOPATHOLOGY LABORATORY Pathology/Cytolog y TISSUE SPECIMEN FROM SKIN / Unknown 03/18/2025 03/19/2025 7:42 AM CDT Eder Simental MD LAB - PATHOLOGY/CYTOLOGY ORDERAB LES Final Result DERMATOPATHOLOGY LABORATORY [facility] - Department of Dermatology [address] [place] [address], [facility] [phone] documented in this encounter Visit Diagnoses Not on filedocumented in this encounter
--- OUTSIDE RECORDS SUMMARY | 2025-06-14 14:21 | XMS_ITS | Encounter Summary ---
Author Organization [facility] [email or web address] [facility] Address [address] [place] [address] Care Team Providers Care Infant Babysitter Name Role Phone Yannick Mckeon MD Primary Care Provider [phone] Reason for Visit * Reason Comments Medication Refill Encounter Details Date Type Department Care Team ([facility] Contact Info) Description 12/17/[address] [facility] Oncology and Hematology [facility] [address] [place] [address] Manpreet Hand MD [address] [place] [address] Malignant neoplasm of upper-outer quadrant of [...] Description 06/21/2025 10:15 AM CDT Office Visit [facility] Oncology and Hematology [facility] [address] [place] [address] Manpreet Hand MD [address] [place] [address] documented as of this encounter Visit Diagnoses Diagnosis Malignant neoplasm of upper-outer quadrant of left breast in female, estrogen receptor positive (CMS/HCC) documented in this encounter Care Teams Infant Babysitter Relationship Specialty Start Date End Date Yannick Mckeon MD [address] [place] [address] [address] [place] [address] PCP - General Family Practice 04/30/19 documented as of this encounter
--- OUTSIDE RECORDS SUMMARY | 2025-06-14 14:21 | XMS_ITS | Encounter Summary ---
Author Organization [facility] Address [address] [facility] [place] [address] Care Team Providers Care Engine Dynamometer Tester Name Role Phone Unavailable Primary Care Provider Unavailabl e Encounter Details Date Type Department Care Team (Late st Contact Info) Description 06/09/2020 Lab Requisition [facility] DermPath Lab [address] [place] [address] Eder Simental MD [address] [place] [address] Social History Tobacco Use Types Packs/Day Years Used Date Smoking Tobacco: Never Assessed Comments Unknown Sex and Gender Information Value Date Recorded Sex Assigned at Not on file Legal Sex Female 12:31 PM SKILL TRAINING PROGRAM COORDINATOR Gender Identity Not on file Sexual Orientation Not on file documented as of this encounter Plan of Treatment Not on file documented as of this encounter Procedures Procedure Name Priority Date/Time Associated Diagnosis Comments DERMATOPATHOLOGY Routine 06/07/2020 12:0 0 AM CDT documented in this encounter Results * DERMATOPATHOLOGY (06/07/2020 12:00 AM CDT) Case Report Dermatopathology Report Case: [id number] Authorizing Provider: Eder Simental MD Collected: 06/07/2020 12:00 AM Ordering Location: [facility] DermPath Lab Received: 06/09/2020 06:23 AM Pathologist: Елена Montano MD Specimen: Skin, left ant thigh 0 9:09 AM CDT DERMATOPATHOLOGY LABORATORY Final Diagnosis Specimen A. 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 See prior biopsy [id number] 0 9:09 AM CDT DERMATOPATHOLOGY LABORATORY Gross [...] Clinical correlation is recommended. The prior biopsy ([id number]) has been reviewed. 0 9:09 AM CDT DERMATOPATHOLOGY LABORATORY Disclaimer An external and internal positive and negative controls are appropriate for the histochemical, immunohistochemical and immunofluorescence stain(s) in this case (if any), except where stated explicitly. The performance characteristics of the stain(s) cited in this report were developed and its performance characteristic determined by the Dermatopathology Laboratory at [facility], directed by Dr. Cheikh Vuong. These tests need not be, and therefore are not, approved by the [place] Food and Drug Administration. The tests are used for clinical purposes. Billing Codes Specimen Charges Stain Charges 81979 1 0 9:09 AM CDT DERMATOPATHOLOGY LABORATORY Embedded Images 0 9:09 AM CDT DERMATOPATHOLOGY LABORATORY Pathology/Cytolog y TISSUE SPECIMEN FROM SKIN / Unknown 06/07/2020 06/09/2020 6:23 AM CDT Eder Simental MD LAB - PATHOLOGY/CYTOLOGY ORDERAB LES Final Result DERMATOPATHOLOGY LABORATORY [facility] - Department of Dermatology [employer] [facility]Prashant [address] [place] [address] documented in this encounter Visit Diagnoses Not on filedocumented in this encounter
--- OUTSIDE RECORDS SUMMARY | 2025-06-14 14:21 | XMS_ITS | Clinical Summary ---
Author Organization [facility] Address [address] [place] [address] Care Team Providers Care Web Coordinator Name Role Phone Yannick Mckeon MD Primary Care Provider [phone]- [phone] Allergies Active Allergy Reactions Criticality Noted Date [...] daily. Active Fluticasone Furoate (VERAMYST) 27.5 mcg/actuation [place], Suspension 2 QHS 08/23/2008 Active azelastine (ASTELIN) [...] Data STL ABSTRACTION Provider, Abstract 04/08/2025 Refill [facility] Oncology and Hematology [address] [place] [address] Manpreet Hand MD Malignant neoplasm of upper-outer [...] Description 06/21/2025 10:15 AM CDT Office Visit [facility] Oncology and Hematology [facility] [address] [facility] [address] [place] [address] Manpreet Hand MD [address] [facility] [address] [place] [address] Health Maintenance Due Date Last Done Comments FIT-DNA Q 3 years 2002 FIT/FOBT Q 1 year 2002 Flex Sig/CT Colonography Q 5 years 2002 PNEUMOCOCCAL VACCINE 50+ YEA RS (1 of 1 - PCV) 2007 ZOSTER VACCINE (1 of 2) 2007 BREAST CANCER SCREENING 06/12/2025 06/12/20 24, 10/02/2023, [...] Most Recently Relevant to Health Maintenance Insurance [facility] FEDERAL [facility] FEDERAL Care Teams Web Coordinator Relationship Specialty Start Date End Date Yannick Mckeon MD [address] [place] [address] [place] [address] PCP - General Family Practice 04/30/19
--- OUTSIDE RECORDS SUMMARY | 2025-06-14 14:21 | XMS_ITS | Encounter Summary ---
Author Organization [facility] Address [address] [place] [address] Care Team Providers Care Sheet Sorter Name Role Phone Unavailable Primary Care Provider Unavailabl e Encounter Details Date Type Department Care Team (Late st Contact Info) Description 01/28/[address] [facility] DermPath Lab [address] [place] [address] Eder Simental MD [address] [place] [address] Social History Tobacco Use Types Packs/Day Years Used Date Smoking Tobacco: Never Assessed Comments Unknown Sex and Gender Information Value Date Recorded Sex Assigned at Not on file Legal Sex Female 12:31 PM CAR RUNNER Gender Identity Not on file Sexual Orientation Not on file documented as of this encounter Plan of Treatment Not on file documented as of this encounter Procedures Procedure Name Priority Date/Time Associated Diagnosis Comments DERMATOPATHOLOGY Routine 01/27/2019 12:0 0 AM CAR RUNNER documented in this encounter Results * DERMATOPATHOLOGY (01/27/2019 12:00 AM CAR RUNNER) Case Report Dermatopathology Report Case: [id number] Authorizing Provider: Eder Simental MD Collected: 01/27/2019 12:00 AM Pathologist: Krys Montes MD Received: 01/28/2019 12:35 PM Specimen: Skin, left upper thigh ant 9 1:54 PM CAR RUNNER DERMATOPATHOLOGY LABORATORY Final Diagnosis Specimen A. SKIN, left upper thigh ant: SEBORRHEIC KERATOSIS, MACULAR, CONSISTENT WITH (L82.1) (see microscopic description) 9 1:54 PM CAR RUNNER DERMATOPATHOLOGY LABORATORY at [address]4 CAR RUNNER Clinical History Several mo hx of lesion on left thigh, growing size irrit by shaving, pt just finished radiation & chemo for breast cancer. 1:54 PM [facility] DERMATOPATHOLOGY LABORATORY Gross Description Specimen A: Received is one formalin filled container labeled with the patients name and designated left upper thigh ant. The specimen consists of a shave removal measuring [id number]. Jar 0. 1:54 PM [facility] DERMATOPATHOLOGY LABORATORY Microscopic Description Specimen A. SKIN, left upper thigh ant: Sections show a relatively broad, flat proliferation of small keratinocytes. The surface is gently papillated, and there is increased basilar pigmentation. There is minimal dermis present for evaluation. Additional deeper sections were obtained and reviewed. 1:54 PM [facility] DERMATOPATHOLOGY LABORATORY Disclaimer An external and internal positive and negative controls are appropriate for the histochemical, immunohistochemical and immunofluorescence stain(s) in this case (if any), except where stated explicitly. The performance characteristics of the stain(s) cited in this report were developed and its performance characteristic determined by the Dermatopathology Laboratory at [facility], directed by Dr. Cheikh Vuong. These tests need not be, and therefore are not, approved by the [place] Food and Drug Administration. The tests are used for clinical purposes. Billing Codes Specimen Charges Stain Charges 15037 1 1:54 PM [facility] DERMATOPATHOLOGY LABORATORY Embedded Images 1:54 PM [facility] DERMATOPATHOLOGY LABORATORY Pathology/Cytolog y TISSUE SPECIMEN FROM SKIN / Unknown 01/27/2019 01/28/2019 12:35 PM CAR RUNNER us Eder Simental MD LAB - PATHOLOGY/CYTOLOGY ORDERAB LES Final Result DERMATOPATHOLOGY LABORATORY [facility] - Department of Dermatology [address] [facility] 5th [place] [address], [facility] [phone] documented in this encounter Visit Diagnoses Not on filedocumented in this encounter
--- OUTSIDE RECORDS SUMMARY | 2025-06-14 14:21 | XMS_ITS | Referral Summary ---
Author Organization [facility] Address [address] [place] [address] Care Team Providers Care Hand Bindery Assembly Worker Name Role Phone Geri Rios MD Primary Care Provider [phone]- [phone] Yannick Mckeon MD Unavailable [phone] Encounters Date Type Department Care Team Description 06/02/2025 Telephone [facility] [address] [facility] [address] [facility], [address] [place] [address] Rosemarie Harris COA 11/18 surgery 06/01/2025 11:30 AM CDT Office Visit [facility] [address], [address] [place] [address] Ester Finnegan MD Positive dysphotopsia (Primary Dx); Hx of LASIK 05/26/2025 Telephone [facility] [address] [place] [address] Rodney Mcnamara MD PhD Patient Education 05/21/2025 9:30 AM CDT Office Visit [facility] [address] [facility] [address] [place] [address] Gary Florian MD Positive dysphotopsia (Primary Dx) 05/20/2025 7:30 AM CDT - 05/20/2025 9:00 AM CDT Surgery [facility] Operating [facility] [address] [place] [address] Rodney Mcnamara MD PhD (COMBO APTE / HALINAYBANI) - VITRECTOMY - 25 GAUGE 05/20/2025 7:23 AM CDT Anesthesia Event [facility] Operating [facility] [address] [place] [address] Miguel Castañeda MD Hearn, Alexandra Marie, NP 05/20/2025 5:40 AM CDT - 05/20/2025 9:02 AM CDT Hospital Encounter [facility] Operating Room [facility] [address] [place] [address] Rodney Mcnamara MD PhD 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 Assessment & Plan (01/25/2025 10:25 AM INSPECTOR ASSEMBLY): S/p MFIOL OU - had symptoms even [...] on file Legal Sex Female 3:08 AM INSPECTOR ASSEMBLY Gender Identity Not on file Sexual Orientation [...] on file Medical Devices Implanted Type Area Head Athletic Trainer/Strength Coach Device Identifier Shelf Expiration Date Model / Serial / Lot [employer] Lens Iol Monofocal Anterior Biconvex Optic Single Piece [employer] Simplicity 6.0x13.0 +24.0d Hydrophobic Acrylic [id number] - [id number] - [id number] Implanted:Qty: 1 on 05/20/2025 by Rodney Mcnamara MD PhD at [facility] Lens Right: Eye [place] [employer] [id number] 04/12/2028 [id number] / 0 Procedures Procedure Name Priority Date/Time Associated Diagnosis Comments NV EXCHANGE INTRAOCULAR LENS 05/20/2025 7:26 AM CDT Positive dysphotopsia Vitreous prolapse of both eyes VITRECTOMY - 25 GAUGE 05/20/2025 7:26 AM CDT Positive dysphotopsia Vitreous prolapse of both eyes from Last 3 Months Insurance FORMERLY [facility] ACCESS [facility] [place] [address] [place] [address] [facility] [employer] Care Teams Hand Bindery Assembly Worker Relationship Specialty Start Date End Date Geri Rios MD PCP - General Nurse Practitioner 12/17/24 Yannick Mckeon MD Family Medicine 12/17/24
--- OUTSIDE RECORDS SUMMARY | 2025-06-14 14:21 | XMS_ITS | Encounter Summary ---
Author Organization [facility] Address [address] [place] [address] Care Team Providers Care Soft Mud Molder Name Role Phone Yannick Mckeon MD Primary Care Provider [phone]- [phone] Encounter Details Date Type Department Care Team (Late st Contact Info) Description 05/07/2017 Chart Note [facility] Radiation Therapy [address] [place] [address] [place] [address] [place] [address] Social History Tobacco Use Types [...] Description 06/21/2025 10:15 AM CDT Office Visit [facility] Oncology and Hematology - [place] [address] [facility] [address] [place] [address] Manpreet Hand MD [address] [facility] [address] [place] [address] documented as of this encounter Visit Diagnoses Not on filedocumented in this encounter Care Teams Soft Mud Molder Relationship Specialty Start Date End Date Yannick Mckeon MD [address] [place] [address] [address] [place] [address] PCP - General Family Practice 04/30/19 documented as of this encounter
== END 2025-06-14 14:08 | disposition home or self-care (01) ==
LOC: ANHIMG 14:12
PROVIDERS: PCP Nurse Practitioner; Visit Provider Internal Medicine Hematology & Oncology
DX: Z12.31 Encounter for screening mammogram for malignant neoplasm of breast (principal)
CPT/HCPCS: 77063; 77067